=== PATIENT | female | born 1970 | race African-American/Black ===

== ENCOUNTER 2016-04-30 20:21 | Inpatient (IN) | payer MEDICARE, OTHER ==
[~2016-04-30] VITALS: Ht 165.1 cm; Wt 62.3 kg
[~2016-04-30 20:21] MED LIST: ALBU0.086 INH; CLOB-50 EX; DILA100C PO; ELVITAB PO; PRED50 PO; SYMB160A INH; VENTAER INH; ZITH250T PO
[2016-04-30 20:27] VITALS: BP 190/105; PULSE 115; RESP 22; TEMP 98.2; O2SAT 87
[2016-04-30 20:35] VITALS: BP 197/98; PULSE 116; RESP 22; RESP 24; O2SAT 93
[2016-04-30] MEDS ORDERED: cefTRIAXone INJ 2,000 MG in SODIUM CHLORIDE 0.9% INJ 100 ML IV STA (20:48)
[2016-04-30] MEDS ORDERED: AZITHROMYCIN INJ 500 MG in SODIUM CHLOR 0.9% 250 ML INJ 250 ML IV STA (20:48)
--- NOTE | 2016-04-30 20:55 | PD ---
HPI Chief Complaint: Respiratory Distress Time Seen by Provider: 20:43 Travel History International Travel<30 days: No Contact w/Intl Traveler<30days: No Traveled to known affect area: No History of Present Illness HPI This 46-year-old female is complaining of cough and shortness of breath. She has a history of COPD. She smokes a pack a day. She says she used to smoke 2 packs a day. She's been coughing up brown phlegm. Been short of breath. She also has a history of HIV. She is on medication for it she says she takes 1 pill a day. He says his viral load is not detectable. She was treated for pneumonia last summer. She also has a history of seizures and is on Dilantin. She apparently had a [place] infection with ring-enhancing lesions. PFSH Past Medical History Anemia: Yes Arthritis: No Asthma: Yes Blood Disorders: No Anxiety: Yes Depression: No Heart Rhythm Problems: Yes (TACHY) Cancer: No Cardiac Catheterization: Yes (normal per pt) Cardiovascular Problems: Yes (TACHYCARDIC 04/09/05) High Cholesterol: No Chest Pain: No Congestive Heart Failure: No COPD: Yes Cerebrovascular Accident: No Diminished Hearing: No Endocrine: No Gastrointestinal Disorders: Yes Genitourinary: No Headaches: Yes (sometimes) Hypertension: No Immune Disorder: Yes (HIV) Musculoskeletal: No Neurologic: Yes Psychiatric: Yes Reproductive: No Respiratory: Yes (ASTHMA AND BRONCHITIS) Integumentary: Yes (ECZEMA) Immunizations Current: Yes Migraines: Yes Pneumonia: Yes Seizures: Yes Shingles: Yes (JULY 2014) Sleep Apnea: No ?: Not Menopausal: Yes : 3 Para: 3 Past Surgical History Abdominal Surgery: No AICD: No Arteriovenous Shunt: No Cardiac Surgery: No Ear Surgery: No Endocrine Surgery: Yes (LYMPH NODE REMOVED FROM LEFT SIDE OF NECK IN 1994) Eye Surgery: No Genitourinary Surgery: No Gynecologic Surgery: No Insulin Pump: No Joint Replacement: No Oral Surgery: Yes (TEETH REMOVED) Pacemaker: No Thoracic Surgery: No Other Surgery: Yes Social History Alcohol Use: No Tobacco Use: Yes (04-18 PPD) Substance Use: No Allergies-Medications (Allergen,Severity, Reaction): Coded Allergies: Celebrex (Unverified Allergy, Severe, Hallucinations, 08/11/15) Contrast Media (Unverified Allergy, Severe, SIEZU, 08/11/15) Reported Meds & Prescriptions Reported Meds & Active Scripts Active Deltasone 50 Mg Tab (Prednisone) 50 Mg Tab 50 Mg PO DAILY 5 Days Zithromax Z-Clemente (Azithromycin) 250 Mg Tab 250 Mg PO DIRECTED 500 MG (2 TABLETS) PO ON DAY 1, THEN 250 MG (1 TABLET) PO ON DAYS 2 TO 5. Ventolin Hfa (Albuterol Sulfate) 18 Gm Aero 2 Puff INH Q4H PRN * SHAKE WELL BEFORE USE * Symbicort (Budesonide/Formoterol Fumarate) 160 Mcg/4.5 Mcg Aer 2 Puff INH BID * SHAKE WELL BEFORE USE * Proventil Ud 0.083% (2.5 Mg/3 Ml) (Albuterol Sulfate) 2.5 Mg/3 Ml Inha 2.5 Mg INH Q4 PRN Reported Symbicort (Budesonide/Formoterol Fumarate) 160 Mcg/4.5 Mcg Aer 2 Puff INH BID * SHAKE WELL BEFORE USE * Clobetasol Propionate (Clobetasol Propionate Emulsion) 0.05 % Aer 0.05 % EX BID Stribild (Msivvuksofdu-Mqhbwizmgx-Ceigfk) Tab 1 Tab PO HS Dilantin Kapseals (Phenytoin Sodium) 100 Mg Cap 100 Mg PO DAILY Review of Systems General / Constitutional: Positive: Fever, No: Chills Eyes: No: Diploplia, Blurred Vision HENT: No: Headaches Cardiovascular: No: Chest Pain or Discomfort Respiratory: Positive: Cough, Shortness of Breath, Wheezing Gastrointestinal: No: Vomiting Skin: No Rash Hematologic/Lymphatic: No: Easy Bruising Physical Exam Narrative GENERAL: Thin female in moderate respiratory distress. Her oxygen saturation on room air was 88% SKIN: Warm and dry. HEAD: Atraumatic. Normocephalic. EYES: Pupils equal and round. No scleral icterus. No injection or drainage. ENT: No nasal bleeding or discharge. Mucous membranes pink and moist. NECK: Trachea midline. No JVD. CARDIOVASCULAR: Regular rate and rhythm. No murmur appreciated. RESPIRATORY: There is accessory muscle use. She has bilateral expiratory wheezes and rhonchi. GASTROINTESTINAL: Abdomen soft, non-tender, nondistended. Hepatic and splenic margins not palpable. MUSCULOSKELETAL: No obvious deformities. No clubbing. No cyanosis. No edema. NEUROLOGICAL: Awake and alert. No obvious cranial nerve deficits. Motor grossly within normal limits. Normal speech. PSYCHIATRIC: Appropriate mood and affect; insight and judgment normal. Data Data Last Documented VS Vital Signs Date Time Temp Pulse Resp B/P Pulse Ox O2 Delivery O2 Flow Rate FiO2 04/30/16 20:27 98.2 115 22 190/105 87 Orders Complete Blood Count With Diff (04/30/16 20:48) Comprehensive Metabolic Panel (04/30/16 20:48) B-Type Natriuretic Peptide (04/30/16 20:48) Ua Includes Microscopic (04/30/16 20:48) Influenzae A/B Antigen (04/30/16 20:48) Blood Culture (04/30/16 20:48) Iv Access Insert/Monitor (04/30/16 20:48) Ecg Monitoring (04/30/16 20:48) Oximetry (04/30/16 20:48) Oxygen Administration (04/30/16 20:48) Chest, Single Ap (04/30/16 20:48) Sodium Chloride 0.9% Flush (Ns Flush) (04/30/16 21:00) Methylprednisolone So Succ Inj (Solumedr (04/30/16 21:00) Albuterol-Ipratropium Neb (Duoneb Neb) (04/30/16 21:00) Lactic Acid Sepsis Protocol (04/30/16 20:48) Blood Glucose (04/30/16 20:48) Ceftriaxone Inj (Rocephin Inj) (04/30/16 20:48) Azithromycin Inj (Zithromax Inj) (04/30/16 20:48) Phenytoin (Dilantin) (04/30/16 20:48) Ldh Serum (04/30/16 20:48) Labs Laboratory Tests Test 04/30/16 20:40 White Blood Count 10.3 TH/MM3 Red Blood Count 4.22 MIL/MM3 Hemoglobin 13.6 GM/DL Hematocrit 40.6 % Mean Corpuscular Volume 96.2 FL Mean Corpuscular Hemoglobin 32.2 PG Mean Corpuscular Hemoglobin 33.4 % Concent Red Cell Distribution Width 16.0 % Platelet Count 257 TH/MM3 Mean Platelet Volume 8.3 FL Neutrophils (%) (Auto) 72.2 % Lymphocytes (%) (Auto) 20.3 % Monocytes (%) (Auto) 6.8 % Eosinophils (%) (Auto) 0.3 % Basophils (%) (Auto) 0.4 % Neutrophils # (Auto) 7.5 TH/MM3 Lymphocytes # (Auto) 2.1 TH/MM3 Monocytes # (Auto) 0.7 TH/MM3 Eosinophils # (Auto) 0.0 TH/MM3 Basophils # (Auto) 0.0 TH/MM3 CBC Comment DIFF FINAL Differential Comment Sodium Level 141 MEQ/L Potassium Level 4.6 MEQ/L Chloride Level 103 MEQ/L Carbon Dioxide Level 30.9 MEQ/L Anion Gap 7 MEQ/L Blood Urea Nitrogen 23 MG/DL Creatinine 0.86 MG/DL Estimat Glomerular Filtration 85 ML/MIN Rate Random Glucose 93 MG/DL Calcium Level 8.6 MG/DL Total Bilirubin 0.1 MG/DL Aspartate Amino Transf 49 U/L (AST/SGOT) Alanine Aminotransferase 55 U/L (ALT/SGPT) Alkaline Phosphatase 61 U/L B-Type Natriuretic Peptide 136 PG/ML Total Protein 7.6 GM/DL Albumin 3.3 GM/DL Phenytoin (Dilantin) Level LESS THAN 0.4 MCG/ML MDM Medical Decision Making Medical Screen Exam Complete: Yes Emergency Medical Condition: Yes Medical Record Reviewed: Yes Differential Diagnosis Differential includes pneumonia, COPD exacerbation, Narrative Course Patient has been given repeated nebulizer treatments and Solu-Medrol. She has ongoing expiratory wheezing. With 2 L nasal oxygen her oxygen saturation is 92% . Chest x-rays read as negative. She will Need to be admitted impression is COPD exacerbation Sepsis Criteria SIRS Criteria (2 or more): Heart rate over 90, RR > 20 or PaCO2 < 32 Diagnosis Primary Impression: COPD exacerbation Suleiman Owen MD Apr 30, 2016 20:55
[2016-04-30] MEDS ORDERED: methylPREDNISolone SOD SUCC 125 MG/2 ML VIAL IVP ONE (21:00)
[2016-04-30] MEDS ORDERED: SODIUM CHLORIDE 0.9% FLUSH 5 ML FLUSH IVF PRN (21:00)
[2016-04-30] MEDS: RESP: ALBUTEROL 2.5 MG/IPRATROPIUM 0.5 MG NEB (SCH) INH (21:04)
[2016-04-30 21:05] VITALS: O2SAT 95
[2016-04-30 21:15] LABS: AUTOMATED NEUTROPHIL # 7.5 TH/MM3 (1.8-7.7); BASOPHIL % 0.4 % (0.0-2.0); EOSINOPHIL % 0.3 % (0.0-4.0); HEMATOCRIT 40.6 % (35.0-46.0); HEMO FLAGS DIFF FINAL; LYMPH % 20.3 % (9.0-44.0); LYMPHOCYTE # 2.1 TH/MM3 (1.0-4.8); MEAN CELL VOLUME 96.2 FL (80.0-100.0); MEAN CORPUSCULAR HEMOGLOBIN 32.2 PG (27.0-34.0); MEAN CORPUSCULAR HGB CONC 33.4 % (32.0-36.0); MONO % 6.8 % (0.0-8.0); NEUT % 72.2 % (16.0-70.0); PLATELET COUNT 257 TH/MM3 (150-450); RED BLOOD COUNT 4.22 MIL/MM3 (4.00-5.30); WHITE BLOOD COUNT 10.3 TH/MM3 (4.0-11.0)
--- NOTE | 2016-04-30 21:18 | RADHPO ---
EXAM DATE/TIME: 04/30/2016 20:57 [facility] COMPARISON: CHEST SINGLE AP, August 11, 2015, 18:07. INDICATIONS : Shortness of breath. MEDICAL HISTORY : Chronic obstructive pulmonary disease. HIV. Seizures, Tachycardia, Asthma, [place] SURGICAL HISTORY : Coronary artery stent. ENCOUNTER: Initial ACUITY: 3 days PAIN SCORE: 0/10 LOCATION: Bilateral chest FINDINGS: A single view of the chest demonstrates the lungs to be symmetrically aerated without evidence of mas s, infiltrate or effusion. The cardiomediastinal contours are unremarkable. Osseous structures are intact. CONCLUSION: No acute disease. Nathanael Guevara MD on April 30, 2016 at 21:16 Board Certified Radiologist. This report was verified electronically.
[2016-04-30 21:28] LABS: CHLORIDE 103 MEQ/L (98-107); POTASSIUM 4.6 MEQ/L (3.5-5.1); SODIUM (NA) 141 MEQ/L (136-145)
[2016-04-30 21:31] LABS: ANION GAP 7 MEQ/L (5-15); BICARBONATE 30.9 MEQ/L (21.0-32.0); BLOOD UREA NITROGEN 23 MG/DL (7-18)
[2016-04-30 21:34] LABS: ALT (GPT) 55 U/L (10-53); AST (GOT) 49 U/L (15-37); GLOMERULAR FILTRATION RATE 85 ML/MIN (>89)
[2016-04-30 21:35] LABS: TOTAL BILIRUBIN ADULT 0.1 MG/DL (0.2-1.0)
[2016-04-30 21:37] LABS: ALKALINE PHOSPHATASE 61 U/L (45-117)
[2016-04-30 21:59] LABS: BLOOD, URINE TRACE (NEG); GLUCOSE,URINE 100 mg/dL (NEG); KETONE, URINE NEG (NEG); NITRITE,URINE NEG (NEG)
[2016-04-30 22:06] LABS: URINE COLOR YELLOW (YELLW/STRAW)
[2016-04-30 22:07] LABS: RBC, URINE 0-3 /hpf (0-3); SQUAMOUS EPITHELIAL CELL URINE 0-5 /hpf (0-5); WBC, URINE 0-2 /hpf (0-5)
[2016-04-30] MEDS ORDERED: ELVITAB PO (22:10)
[2016-04-30] MEDS ORDERED: VENTAER INH (22:10)
[2016-04-30] MEDS ORDERED: ALBU.5I NEB (22:10)
[2016-04-30] MEDS ORDERED: SYMB160A INH (22:10)
[2016-04-30] MEDS ORDERED: DILA100C PO (22:10)
[2016-04-30] MEDS ORDERED: [UNRECOGNIZED DRUG - CODE] TOPICAL (22:10)
[2016-04-30] MEDS ORDERED: OXYC1TAB63 PO (22:12)
[2016-04-30] MEDS ORDERED: oxyCODONE/ACETAMINOPHEN 5 MG/325 MG TAB PO ONE (22:15)
[2016-04-30] MEDS ORDERED: ACETAMINOPHEN 325 MG TAB PO PRN (22:30)
[2016-04-30] MEDS ORDERED: SODIUM CHLORIDE 0.9% FLUSH 5 ML FLUSH FLUSH PRN (22:30)
[2016-04-30] MEDS ORDERED: ONDANSETRON HCL 4 MG/2 ML VIAL IVP PRN (22:30)
[2016-04-30] MEDS ORDERED: ACETAMINOPHEN/HYDROcodone 325 MG/5 MG TAB PO PRN (22:30)
[2016-04-30] MEDS ORDERED: ACETAMINOPHEN/HYDROcodone 325 MG/10 MG TAB PO PRN (22:30)
[2016-04-30] MEDS ORDERED: BISACODYL 10 MG SUPP PR PRN (22:30)
[2016-04-30] MEDS ORDERED: RESP: ALBUTEROL 2.5 MG/IPRATROPIUM 0.5 MG NEB (PRN) NEB (22:30)
[2016-04-30 22:35] VITALS: BP 178/86; PULSE 114; RESP 28; O2SAT 96
[2016-04-30 22:59] LABS: LDH SERUM 404 U/L (84-246)
[2016-04-30 23:25] VITALS: BP 126/68; PULSE 114; RESP 26; O2SAT 96
[2016-04-30 23:50] VITALS: PULSE 118
[2016-05-01] MEDS: methylPREDNISolone SOD SUCC 40 MG/1 ML VIAL IV PUSH SCH ×4 (00:03→17:32)
[2016-05-01 00:27] VITALS: BP 125/86; PULSE 115; RESP 24; TEMP 97; O2SAT 96
[2016-05-01 04:28] VITALS: BP 139/66; PULSE 90; RESP 24; TEMP 98.8; O2SAT 95
[2016-05-01 07:49] LABS: CHLORIDE 105 MEQ/L (98-107); POTASSIUM 4.8 MEQ/L (3.5-5.1); SODIUM (NA) 142 MEQ/L (136-145)
[2016-05-01 07:53] LABS: ANION GAP 6 MEQ/L (5-15); BICARBONATE 31.3 MEQ/L (21.0-32.0); BLOOD UREA NITROGEN 21 MG/DL (7-18)
[2016-05-01 07:55] LABS: BASOPHIL % 0.2 % (0.0-2.0); HEMATOCRIT 39.1 % (35.0-46.0); HEMO FLAGS DIFF FINAL; LYMPH % 16.7 % (9.0-44.0); LYMPHOCYTE # 1.2 TH/MM3 (1.0-4.8); MEAN CELL VOLUME 96.7 FL (80.0-100.0); MEAN CORPUSCULAR HEMOGLOBIN 32.8 PG (27.0-34.0); MEAN CORPUSCULAR HGB CONC 33.9 % (32.0-36.0); MONO % 2.1 % (0.0-8.0); PLATELET COUNT 205 TH/MM3 (150-450); RED BLOOD COUNT 4.04 MIL/MM3 (4.00-5.30); WHITE BLOOD COUNT 7.4 TH/MM3 (4.0-11.0)
[2016-05-01 07:56] LABS: ALT (GPT) 53 U/L (10-53); AST (GOT) 39 U/L (15-37); GLOMERULAR FILTRATION RATE 103 ML/MIN (>89)
[2016-05-01 07:58] LABS: TOTAL BILIRUBIN ADULT 0.2 MG/DL (0.2-1.0)
[2016-05-01 07:59] LABS: ALKALINE PHOSPHATASE 56 U/L (45-117)
[2016-05-01 08:00] VITALS: BP 172/93; PULSE 106; PULSE 120; RESP 24; TEMP 97.8; O2SAT 95
[2016-05-01] MEDS: RESP: ALBUTEROL 2.5 MG/IPRATROPIUM 0.5 MG NEB (SCH) NEB ×3 (08:18→15:15)
[2016-05-01 08:19] VITALS: O2SAT 96
[2016-05-01] MEDS ORDERED: BUDESONIDE-FORMOTEROL 160/4.5 MCG INHALER INH SCH (09:00)
[2016-05-01] MEDS ORDERED: guaiFENesin E.R. 600 MG TAB PO SCH (09:00)
[2016-05-01] MEDS ORDERED: SODIUM CHLORIDE 0.9% FLUSH 5 ML FLUSH FLUSH SCH (09:00)
[2016-05-01 12:00] VITALS: BP 160/83; PULSE 105; RESP 24; TEMP 99.6; O2SAT 98
--- NOTE | 2016-05-01 13:49 | HHI.HP ---
[facility]Staff Admission Diagnosis COPD EXACERBATION Diagnoses: Chief Complaint: Short of breath Travel History International Travel<30 Days: No Contact w/Intl Traveler <30 Da: No Traveled to Known Affected Are: No History of Present Illness This patient is a 46-year-old female with a history of bronchitis who came to the emergency room after several days of increased work of breathing and increased shortness of breath with exertion. Patient normally takes Ventolin, Symbicort and Proventil at home but noted that for the last couple days she had to use more of her rescue inhaler and her regular treatment were not helping her breathing. She did come to the emergency room for further evaluation. She was hypoxemic at 87% on room air. She is working hard to breathe and was therefore admitted through the emergency room for further evaluation of respiratory distress and hypoxemic respiratory failure. Patient at this time is seen eating. She is still working hard to breathe however she is adamant that she must leave the hospital work. I did explain to the patient that she has not cleared her shortness of breath and will need further treatment here in the hospital. Patient denies fevers or chills but she has been shaky and dizzy over the last 24 hours. She notes no chest pain. For these reasons the patient was admitted to the hospital Review of Systems Constitutional: COMPLAINS OF: Fatigue, Dizziness, DENIES: Diaphoretic episodes , Fever, Weight gain, Weight loss, Chills, Change in appetite, Night Sweats Endocrine: DENIES: Abnorml menstrual pattern, Heat/cold intolerance, Polydipsia , Polyuria, Polyphagia Eyes: DENIES: Blurred vision, Diplopia, Eye inflammation, Eye pain, Vision loss , Photosensitivity, Double Vision Ears, nose, mouth, throat: DENIES: Tinnitus, Hearing loss, Vertigo, Nasal discharge, Oral lesions, Throat pain, Hoarseness, Ear Pain, Running Nose, Epistaxis, Sinus Pain, Toothache, Odynophagia Respiratory: COMPLAINS OF: Sputum production, Shortness of breath, DENIES: Apneas, Cough, Snoring, Wheezing, Hemoptysis Cardiovascular: COMPLAINS OF: Dyspnea on Exertion, DENIES: Chest pain, Palpitations, Syncope, PND, Lower Extremity Edema, Orthopnea, Claudication Gastrointestinal: DENIES: Abdominal pain, Black stools, Bloody stools, Constipation, Diarrhea, Nausea, Vomiting, Difficulty Swallowing, Anorexia Integumentary: DENIES: Abnormal pigmentation, Pruritus, Rash, Nail changes, Breast masses, Breast skin changes, Nipple discharge Hematologic/lymphatic: DENIES: Bruising, Lymphadenopathy Immunologic/allergic: DENIES: Eczema, Urticaria Neurologic: DENIES: Abnormal gait, Headache, Localized weakness, Paresthesias, Seizures, Speech Problems, Tremor, Poor Balance Psychiatric: COMPLAINS OF: Anxiety, DENIES: Confusion, Mood changes, Depression, Hallucinations, Agitation, Suicidal Ideation, Homicidal Ideation, Delusions Past Family Social History Past Medical History HIV COPD for 3 years Eczema Past Surgical History Lymph node excision Dental extraction Reported Medications Reviewed and the medical record, patient denies taking any recent steroids. She does take her inhaler at home Allergies: Coded Allergies: Celebrex (Unverified Allergy, Severe, Hallucinations, 08/11/15) Contrast Media (Unverified Allergy, Severe, SIEZURE, 08/11/15) Active Ordered Medications Reviewed and the medical record Family History No family history of respiratory trouble Social History Patient smokes at least 1-1/2 packs a day, works at [employer], no alcohol, lives independently Physical Exam Vital Signs Vital Signs Date Time Temp Pulse Resp B/P Pulse Ox O2 Delivery O2 Flow Rate FiO2 05/01/16 12:00 99.6 105 24 160/83 98 05/01/16 08:19 96 Nasal Cannula 2.00 05/01/16 08:00 106 05/01/16 08:00 97.8 120 24 172/93 95 05/01/16 04:28 98.8 90 24 139/66 95 05/01/16 00:27 97.0 115 24 125/86 96 04/30/16 23:50 118 04/30/16 23:25 114 26 126/68 96 Nasal Cannula 2 04/30/16 22:35 114 28 178/86 96 Nasal Cannula 2 04/30/16 21:05 95 Nasal Cannula 2.00 04/30/16 20:45 116 24 93 Nasal Cannula 2 04/30/16 20:35 86 Nasal Cannula 2 04/30/16 20:35 22 93 Nasal Cannula 2 04/30/16 20:35 116 24 197/98 93 Nasal Cannula 2 04/30/16 20:27 98.2 115 22 190/105 87 Physical Exam GENERAL: This is a well-nourished, dyspneic at rest with increased work of breathing and difficulty completing full sentences SKIN: No rashes, ecchymoses or lesions. Cool and dry. HEAD: Atraumatic. Normocephalic. No temporal or scalp tenderness. EYES: Pupils equal round and reactive. Extraocular motions intact. No scleral icterus. No injection or drainage. ENT: Nose without bleeding, purulent drainage or septal hematoma. Throat without erythema, tonsillar hypertrophy or exudate. Uvula midline. Airway patent. NECK: Trachea midline. No JVD or lymphadenopathy. Supple, nontender, no meningeal signs. CARDIOVASCULAR: Regular rate and rhythm without murmurs, gallops, or rubs. RESPIRATORY: Decreased air flow bilaterally, scattered wheezes, no Rales or rhonchi GASTROINTESTINAL: Abdomen soft, non-tender, nondistended. No hepato-splenomegaly , or palpable masses. No guarding. MUSCULOSKELETAL: Extremities without clubbing, cyanosis, or edema. No joint tenderness, effusion, or edema noted. No calf tenderness. Negative Homans sign bilaterally. NEUROLOGICAL: Awake and alert. Cranial nerves II through XII intact. Motor and sensory grossly within normal limits. Five out of 5 muscle strength in all muscle groups. Normal speech. Laboratory Laboratory Tests Test 04/30/16 04/30/16 04/30/16 05/01/16 20:40 21:31 21:40 06:55 White Blood Count 10.3 7.4 Red Blood Count 4.22 4.04 Hemoglobin 13.6 13.3 Hematocrit 40.6 39.1 Mean Corpuscular Volume 96.2 96.7 Mean Corpuscular Hemoglobin 32.2 32.8 Mean Corpuscular Hemoglobin 33.4 33.9 Concent Red Cell Distribution Width 16.0 16.0 Platelet Count 257 205 Mean Platelet Volume 8.3 8.5 Neutrophils (%) (Auto) 72.2 81.0 Lymphocytes (%) (Auto) 20.3 16.7 Monocytes (%) (Auto) 6.8 2.1 Eosinophils (%) (Auto) 0.3 0.0 Basophils (%) (Auto) 0.4 0.2 Neutrophils # (Auto) 7.5 6.0 Lymphocytes # (Auto) 2.1 1.2 Monocytes # (Auto) 0.7 0.2 Eosinophils # (Auto) 0.0 0.0 Basophils # (Auto) 0.0 0.0 CBC Comment DIFF FINAL DIFF FINAL Differential Comment Sodium Level 141 142 Potassium Level 4.6 4.8 Chloride Level 103 105 Carbon Dioxide Level 30.9 31.3 Anion Gap 7 6 Blood Urea Nitrogen 23 21 Creatinine 0.86 0.73 Estimat Glomerular Filtration 85 103 Rate Random Glucose 93 104 Calcium Level 8.6 8.7 Total Bilirubin 0.1 0.2 Aspartate Amino Transf 49 39 (AST/SGOT) Alanine Aminotransferase 55 53 (ALT/SGPT) Alkaline Phosphatase 61 56 Lactate Dehydrogenase 404 B-Type Natriuretic Peptide 136 Total Protein 7.6 7.3 Albumin 3.3 3.0 Phenytoin (Dilantin) Level LESS THAN 0.4 Lactic Acid Level 0.9 Urine Color YELLOW Urine Turbidity CLEAR Urine pH 6.0 Urine Specific [place] 1.020 Urine Protein 30 Urine Glucose (UA) 100 Urine Ketones NEG Urine Occult Blood TRACE Urine Nitrite NEG Urine Bilirubin NEG Urine Leukocyte Esterase NEG Urine RBC 0-3 Urine WBC 0-2 Urine Squamous Epithelial 0-5 Cells Urine Bacteria NONE Microscopic Urinalysis Comment Date/Time Procedure Status Source Growth 04/30/16 21:26 Influenza Types A,B Antigen (ESTELITA) - Final Complete Nasal Aspirate NEGATIVE FOR FLU A AND B ANTIGEN.... 04/30/16 21:26 Aerobic Blood Culture - Preliminary Resulted Blood Peripheral NO GROWTH IN 1 DAY 04/30/16 21:26 Anaerobic Blood Culture - Preliminary Resulted Blood Peripheral NO GROWTH IN 1 DAY Result Diagram: 05/01/16 0655 05/01/1655 Imaging Last Impressions Chest X-Ray 04/30/162047 Signed Impressions: Service Date/Time: Saturday, April 30, 2016 20:57 - CONCLUSION: No acute disease. Nathanael Guevara MD Assessment and Plan Problem List: (1) Sinus tachycardia ICD Code: I47.1 Status: Acute Plan: Likely secondary to COPD exacerbation with acute respiratory insufficiency Continue to follow (2) HIV (human immunodeficiency virus infection) ICD Code: Z21 Status: Acute Plan: Continue antivirals Outpatient follow-up with ID (3) COPD exacerbation ICD Code: J44.1 Status: Acute Plan: Continue bronchodilators, and Jake, oxygen, walk test pending Patient 87% on room air on initial evaluation Still quite tachycardic and blood pressures elevated Physician Certification 2 Midnight Certification Type: Admission for Inpatient Services Order for Inpatient Services The services are ordered in accordance with Medicare regulations or non- Medicare payer requirements, as applicable. In the case of services not specified as inpatient-only, they are appropriately provided as inpatient services in accordance with the 2-midnight benchmark. Estimated LOS (days): 3 3 days is the estimated time the patient will need to remain in the hospital, assuming treatment plan goals are met and no additional complications. Post-Hospital Plan: Home Odette Alvarez MD May 01, 2016 13:48
[2016-05-01 16:00] VITALS: BP 160/77; PULSE 119; RESP 20; TEMP 98.4; O2SAT 97
[2016-05-01] MEDS ORDERED: cloNIDine HCL 0.1 MG TAB PO PRN (16:45)
[2016-05-01] MEDS ORDERED: cefTRIAXone INJ 1,000 MG in SODIUM CHLORIDE 0.9% INJ 100 ML IV SCH (23:00)
[2016-05-01] MEDS ORDERED: AZITHROMYCIN INJ 500 MG in SODIUM CHLOR 0.9% 250 ML INJ 250 ML IV SCH (23:00)
[2016-05-02] MEDS ORDERED: ELVIT/COBI/EMTR/TENOF 150/150/200/300 MG TABLETS PO SCH (09:00)
[2016-05-02] MEDS ORDERED: PHENYTOIN SODIUM 100 MG CAP PO SCH (09:00)
== END 2016-05-01 17:53 | disposition left against medical advice (07) | DRG 192 ==
LOC: PHED 20:21 → PHEDA 22:21 → PH3A 23:28
PROVIDERS: ADMIT Hospitalist; ATTEND Hospitalist
PROC: 3E0F7GC Introduction of Other Therapeutic Substance into Respiratory Tract, Via Natural or Artificial Opening (ICD-10-PCS; principal; 2016-04-30)
DX: J44.1 Chronic obstructive pulmonary disease with (acute) exacerbation (principal); F17.210 Nicotine dependence, cigarettes, uncomplicated; J45.909 Unspecified asthma, uncomplicated; G40.909 Epilepsy, unspecified, not intractable, without status epilepticus; Z21 Asymptomatic human immunodeficiency virus [HIV] infection status; G43.909 Migraine, unspecified, not intractable, without status migrainosus; R09.02 Hypoxemia; R06.89 Other abnormalities of breathing
CPT/HCPCS: 71010; 80053; 80185; 81001; 83605; 83615; 83880; 85025; 87040; 87804; 94620; 94640; 94664; 96365; 96375; J0456; J0696; J2920; J2930; J7050

== ENCOUNTER 2016-05-19 22:44 | Emergency (ER) | payer MEDICARE, MEDICAID ==
[~2016-05-19] VITALS: Ht 165.1 cm; Wt 61.0 kg
[~2016-05-19 22:44] MED LIST changes: +ALBU.5I NEB; -ALBU0.086 INH; -CLOB-50 EX; +OXYC1TAB63 PO; -PRED50 PO; -ZITH250T PO; +[UNRECOGNIZED DRUG - CODE] TOPICAL
[2016-05-19 22:55] VITALS: BP 136/86; PULSE 118; RESP 20; TEMP 98.6; O2SAT 94
[2016-05-20] MEDS ORDERED: SODIUM CHLORIDE 0.9% FLUSH 5 ML FLUSH IVF PRN (01:15)
[2016-05-20] MEDS ORDERED: methylPREDNISolone SOD SUCC 125 MG/2 ML VIAL IVP ONE (01:15)
[2016-05-20] MEDS: RESP: ALBUTEROL 2.5 MG/IPRATROPIUM 0.5 MG NEB (SCH) INH ×2 (01:16→01:17)
--- NOTE | 2016-05-20 01:29 | RADHPO ---
EXAM DATE/TIME: 05/20/2016 01:11 [facility] COMPARISON: CHEST SINGLE AP, April 30, 2016, 20:57. INDICATIONS : Cough and chills for two days. MEDICAL HISTORY : None. SURGICAL HISTORY : None. ENCOUNTER: Initial ACUITY: 2 days PAIN SCORE: 0/10 LOCATION: chest FINDINGS: Lungs are hyperexpanded. No infiltrate. No pleural effusion or pneumothorax. Heart size stable, within normal limits. CONCLUSION: No pneumonia or other acute cardiopulmonary disease. Hyperexpanded lungs. Nathanael Wan MD on May 20, 2016 at 1:27 Board Certified Radiologist. This report was verified electronically.
[2016-05-20 01:38] LABS: AUTOMATED NEUTROPHIL # 3.1 TH/MM3 (1.8-7.7); BASOPHIL # 0.2 TH/MM3 (0-0.2); BASOPHIL % 3.8 % (0.0-2.0); EOSINOPHIL # 0.1 TH/MM3 (0-0.4); HEMATOCRIT 39.8 % (35.0-46.0); HEMO FLAGS DIFF FINAL; LYMPH % 33.4 % (9.0-44.0); LYMPHOCYTE # 1.9 TH/MM3 (1.0-4.8); MEAN CELL VOLUME 95.2 FL (80.0-100.0); MEAN CORPUSCULAR HEMOGLOBIN 31.9 PG (27.0-34.0); MEAN CORPUSCULAR HGB CONC 33.5 % (32.0-36.0); MONO % 5.5 % (0.0-8.0); NEUT % 55.3 % (16.0-70.0); PLATELET COUNT 243 TH/MM3 (150-450); RED BLOOD COUNT 4.18 MIL/MM3 (4.00-5.30); RED CELL DISTRIBUTION WIDTH 15.2 % (11.6-17.2); WHITE BLOOD COUNT 5.6 TH/MM3 (4.0-11.0)
[2016-05-20 01:44] LABS: POTASSIUM 4.2 MEQ/L (3.5-5.1)
[2016-05-20 01:47] LABS: BICARBONATE 25.5 MEQ/L (21.0-32.0)
[2016-05-20 01:57] VITALS: BP 111/63; PULSE 120; RESP 20; O2SAT 98
[2016-05-20 02:15] VITALS: O2SAT 94
[2016-05-20 02:41] VITALS: BP 163/71; PULSE 109; PULSE 118; RESP 20; O2SAT 92; O2SAT 96
--- NOTE | 2016-05-20 03:17 | PD ---
HPI Chief Complaint: Cold / Flu Symptoms Time Seen by Provider: 01:01 Travel History International Travel<30 days: No Contact w/Intl Traveler<30days: No Traveled to known affect area: No History of Present Illness HPI The patient is a 46-year-old female that has a history of asthma/COPD who complains of cough and chills for 2 days. She has not recorded a fever at home. Her cough is productive mostly of white and yellow sputum. He states she does not smoke. She does have a nebulizer machine at home and requests refills for her nebulizer. PFSH Past Medical History Anemia: Yes Arthritis: No Asthma: Yes Blood Disorders: No Anxiety: Yes Depression: No Heart Rhythm Problems: Yes (TACHY) Cancer: No Cardiac Catheterization: Yes (normal per pt) Cardiovascular Problems: Yes (TACHYCARDIC 04/09/05) High Cholesterol: No Chest Pain: No Congestive Heart Failure: No COPD: Yes Cerebrovascular Accident: No Diminished Hearing: No Endocrine: No Gastrointestinal Disorders: Yes Genitourinary: No Headaches: Yes (sometimes) Hypertension: No Immune Disorder: Yes (HIV) Musculoskeletal: No Neurologic: Yes Psychiatric: Yes Reproductive: No Respiratory: Yes (ASTHMA AND BRONCHITIS) Integumentary: Yes (ECZEMA) Immunizations Current: Yes Migraines: Yes Pneumonia: Yes Seizures: Yes Shingles: Yes (JULY 2014) Sleep Apnea: No Tetanus Vaccination: Unknown ?: Not LMP: MENOPAUSE Menopausal: Yes : 3 Para: 3 Past Surgical History Abdominal Surgery: No AICD: No Arteriovenous Shunt: No Cardiac Surgery: No Ear Surgery: No Endocrine Surgery: Yes (LYMPH NODE REMOVED FROM LEFT SIDE OF NECK IN 1994) Eye Surgery: No Genitourinary Surgery: No Gynecologic Surgery: No Insulin Pump: No Joint Replacement: No Oral Surgery: Yes (TEETH REMOVED) Pacemaker: No Thoracic Surgery: No Other Surgery: Yes Social History Alcohol Use: No Tobacco Use: Yes (1 PPD) Substance Use: No Allergies-Medications (Allergen,Severity, Reaction): Coded Allergies: Celebrex (Unverified Allergy, Severe, Hallucinations, 05/20/16) Contrast Media (Unverified Allergy, Severe, SIEZURE, 05/20/16) Reported Meds & Prescriptions Reported Meds & Active Scripts Active Reported Oxycodone-Acetaminophen 5-325 mg Tab 1 Tab PO Q6H PRN Clobetasol Topical (Clobetasol Propionate) 0.05% Sham 1 Applic TOPICAL DAILY Dilantin (Phenytoin Extended) 100 Mg Cap 100 Mg PO DAILY Stribild (Ktzwucuvdssh-Nkraqfuxjo-Ckdpbazlabno-Tenofvir) [phone] Mg Tab 1 Tab PO DAILY With food Albuterol Neb (Albuterol Sulfate) 2.5 Mg/0.5 Ml Neb 2.5 Mg NEB TID NEB PRN Note: The Albuterol Sulfate Inhalation Solution is concentrated and must be diluted. Read complete instructions carefully before using. Ventolin Hfa 18 GM Inh (Albuterol Sulfate) 90 Mcg/Act Aer 2 Puff INH Q4-6H PRN Symbicort Inh (Budesonide/Formoterol Fumarate) 160-4.5 Mcg/Act Aero 2 Puff INH Q12HR Review of Systems Except as stated in HPI: all other systems reviewed are Neg Physical Exam Narrative GENERAL: SKIN: Warm and dry. HEAD: Atraumatic. Normocephalic. EYES: Pupils equal and round. No scleral icterus. No injection or drainage. ENT: No nasal bleeding or discharge. Mucous membranes pink and moist. NECK: Trachea midline. No JVD. CARDIOVASCULAR: Regular rate and rhythm. No murmur appreciated. RESPIRATORY: No accessory muscle use. Clear to auscultation. Breath sounds equal bilaterally. GASTROINTESTINAL: Abdomen soft, non-tender, nondistended. Hepatic and splenic margins not palpable. MUSCULOSKELETAL: No obvious deformities. No clubbing. No cyanosis. No edema. NEUROLOGICAL: Awake and alert. No obvious cranial nerve deficits. Motor grossly within normal limits. Normal speech. PSYCHIATRIC: Appropriate mood and affect; insight and judgment normal. Data Data Last Documented VS Vital Signs Date Time Temp Pulse Resp B/P Pulse Ox O2 Delivery O2 Flow Rate FiO2 05/20/16 02:42 Room Air 05/20/16 02:41 109 20 163/71 92 05/19/16 22:55 98.6 Orders Complete Blood Count With Diff (05/20/16 01:05) Basic Metabolic Panel (Bmp) (05/20/16 01:05) Influenzae A/B Antigen (05/20/16 01:05) Iv Access Insert/Monitor (05/20/16 01:05) Ecg Monitoring (05/20/16 01:05) Oximetry (05/20/16 01:05) Oxygen Administration (05/20/16 01:05) Chest, Pa & Lat (05/20/16 01:05) Sodium Chloride 0.9% Flush (Ns Flush) (05/20/16 01:15) Methylprednisolone So Succ Inj (Solumedr (05/20/16 01:15) Albuterol-Ipratropium Neb (Duoneb Neb) (05/20/16 01:15) Labs Laboratory Tests Test 05/20/16 01:20 White Blood Count 5.6 TH/MM3 Red Blood Count 4.18 MIL/MM3 Hemoglobin 13.4 GM/DL Hematocrit 39.8 % Mean Corpuscular Volume 95.2 FL Mean Corpuscular Hemoglobin 31.9 PG Mean Corpuscular Hemoglobin 33.5 % Concent Red Cell Distribution Width 15.2 % Platelet Count 243 TH/MM3 Mean Platelet Volume 7.9 FL Neutrophils (%) (Auto) 55.3 % Lymphocytes (%) (Auto) 33.4 % Monocytes (%) (Auto) 5.5 % Eosinophils (%) (Auto) 2.0 % Basophils (%) (Auto) 3.8 % Neutrophils # (Auto) 3.1 TH/MM3 Lymphocytes # (Auto) 1.9 TH/MM3 Monocytes # (Auto) 0.3 TH/MM3 Eosinophils # (Auto) 0.1 TH/MM3 Basophils # (Auto) 0.2 TH/MM3 CBC Comment DIFF FINAL Differential Comment Sodium Level 142 MEQ/L Potassium Level 4.2 MEQ/L Chloride Level 108 MEQ/L Carbon Dioxide Level 25.5 MEQ/L Anion Gap 9 MEQ/L Blood Urea Nitrogen 8 MG/DL Creatinine 0.72 MG/DL Estimat Glomerular Filtration 105 ML/MIN Rate Random Glucose 72 MG/DL Calcium Level 8.2 MG/DL [facility] Medical Decision Making Medical Screen Exam Complete: Yes Emergency Medical Condition: Yes Medical Record Reviewed: Yes Interpretation(s) The chest x-ray shows no pneumonia or other acute cardiopulmonary disease. Influenza is negative for influenza A and B. The CBC shows a white count of 5600 and is totally normal. The basic metabolic profile is normal except for a glucose of 72 and calcium 8.2. Differential Diagnosis COPD with acute exacerbation, pneumonia, bronchitis, viral syndrome, anemia, hypo-/hyperglycemia, electrolyte disorder Narrative Course The patient has COPD with acute exacerbation. It is now 0320 and the patient feels better and wants to go home. She still has a few widely scattered wheezes in her lungs. I will refill her albuterol nebulizer medication and she' ll be put on a tapered course of prednisone over a days. This appears to be set off by a viral syndrome, the white count is low suggesting viral etiology. Diagnosis Primary Impression: COPD exacerbation Additional Impression: Viral bronchitis Med/Other Pt SpecificInfo: Prescription(s) given Scripts Prednisone 50 Mg Tab50 Mg PO BID #12 TAB Ref 0 Prov:Sim Jara MD 05/20/16 Albuterol Neb 2.5 Mg/3 Ml Neb2.5 Mg NEB QID NEB #60 NEBULE Ref 0 Prov:Sim Jara MD 05/20/16 Disposition: 01 DISCHARGE HOME Condition: Stable Sim Jara MD May 20, 2016 03:17
[2016-05-20] MEDS ORDERED: ALBU0.08 NEB (03:22)
[2016-05-20] MEDS ORDERED: PRED50 PO (03:24)
[2016-05-20 03:36] VITALS: BP 139/71; PULSE 106; RESP 19; O2SAT 91
== END 2016-05-20 04:05 | disposition home or self-care (01) ==
LOC: PHED 22:44
DX: J44.1 Chronic obstructive pulmonary disease with (acute) exacerbation (principal); J20.8 Acute bronchitis due to other specified organisms; F17.210 Nicotine dependence, cigarettes, uncomplicated
CPT/HCPCS: 71020; 80048; 85025; 87804; 94640; 94664; 96374; 99283; J2930

== ENCOUNTER → 2016-06-01 | Outpatient (CLI) | payer MEDICARE, MEDICAID ==
[~2016-06-01] MED LIST changes: +ALBU0.08 NEB; +PRED50 PO
[2016-06-01 09:37] LABS: BLOOD GAS BASE EXCESS -0.1 mmol/L (-2-2); BLOOD GAS CARBOXYHEMOGLOBIN 2.6 % (0-4); BLOOD GAS HCO3 23 mmol/L (22-26); BLOOD GAS METHEMOGLOBIN 1.7 % (0-2); BLOOD GAS O2 HGB SATURATION 92 % (90-100); BLOOD GAS PCO2 33 mmHg (38-42); BLOOD GAS PO2 82 mmHg (61-120); BLOOD GAS TOTAL HGB 16.2 G/DL (12.0-16.0); CRITICAL VALUE NO; DRAW SITE RT RADIAL; FIO2 21 %; NUMBER OF ARTERIAL PUNCTURES 1; STAT NO; TEMP CORR TO 98.6; ULNAR PULSE PRESENT
--- NOTE | 2016-06-03 09:43 | RSPPFT ---
DATE OF PROCEDURE: 06/01/16 COMMENTS: VOLUMES DYNAMIC: FVC moderately reduced; FEV1 severely reduced. STATIC: TLC normal; VTG mildly increased; RV severely increased. FLOWS: FEV1% moderately reduced; FEF 25-75 severely reduced. DIFFUSION: Moderately reduced. FLOW VOLUME LOOP: Pattern of variable intrathoracic airways obstruction. IMPRESSION: Severe obstructive ventilatory defect with reduction in diffusion consistent with emphysema. Moderate to severe hyperinflation and significant improvement post-bronchodilator noted. Airways resistance is increased.
== END ==
LOC: HRSP 09:11
PROVIDERS: ATTEND Internal Medicine
DX: J44.9 Chronic obstructive pulmonary disease, unspecified (principal)
CPT/HCPCS: 36600; 82805; 94060; 94726; 94729

== ENCOUNTER 2017-02-18 06:25 | Emergency (ER) | payer MEDICARE, OTHER ==
[~2017-02-18] VITALS: Ht 165.1 cm; Wt 50.5 kg
[2017-02-18 06:35] VITALS: BP 137/74; PULSE 100; RESP 24; TEMP 97.8; O2SAT 95
[2017-02-18] MEDS ORDERED: PRED20 PO (07:16)
[2017-02-18] MEDS ORDERED: ZITHTAB PO (07:16)
[2017-02-18 07:18] VITALS: BP 130/65; PULSE 102; RESP 16; TEMP 97.8; O2SAT 98
--- NOTE | 2017-02-18 07:19 | PD ---
HPI Chief Complaint: Respiratory Symptoms Time Seen by Provider: 07:09 Travel History International Travel<30 days: No Contact w/Intl Traveler<30days: No Traveled to known affect area: No History of Present Illness HPI The patient was seen and examined in the presence of the nurse. This patient complains of coughing up yellow phlegm and congestion and wheezing. She has COPD and continues to smoke. She has a nebulizer and inhaler at home. Denies fever or chest pain. Symptoms severity is mild to moderate. No alleviating factors PFSH Past Medical History Anemia: Yes Arthritis: No Asthma: Yes Blood Disorders: No Anxiety: Yes Depression: No Heart Rhythm Problems: Yes (TACHY) Cancer: No Cardiac Catheterization: Yes (normal per pt) Cardiovascular Problems: Yes (TACHYCARDIC 04/09/05) High Cholesterol: No Chest Pain: No Congestive Heart Failure: No COPD: Yes Cerebrovascular Accident: No Diminished Hearing: No Endocrine: No Gastrointestinal Disorders: Yes Genitourinary: No Headaches: Yes (sometimes) Hypertension: No Immune Disorder: Yes (HIV) Musculoskeletal: No Neurologic: Yes Psychiatric: Yes Reproductive: No Respiratory: Yes (ASTHMA AND BRONCHITIS) Integumentary: Yes (ECZEMA) Immunizations Current: Yes Migraines: Yes Pneumonia: Yes Seizures: Yes Shingles: Yes (JULY 2014) Sleep Apnea: No Tetanus Vaccination: Unknown Influenza Vaccination: No ?: Not Menopausal: Yes : 3 Para: 3 Past Surgical History Abdominal Surgery: No AICD: No Arteriovenous Shunt: No Cardiac Surgery: No Ear Surgery: No Endocrine Surgery: Yes (LYMPH NODE REMOVED FROM LEFT SIDE OF NECK IN 1994) Eye Surgery: No Genitourinary Surgery: No Gynecologic Surgery: No Insulin Pump: No Joint Replacement: No Oral Surgery: Yes (TEETH REMOVED) Pacemaker: No Thoracic Surgery: No Other Surgery: Yes Social History Alcohol Use: No Tobacco Use: Yes (1 PPD) Substance Use: No Allergies-Medications (Allergen,Severity, Reaction): Coded Allergies: celecoxib (Unverified Allergy, Severe, Hallucinations, 02/18/17) diatrizoate meglumine (Unverified Allergy, Severe, SIEZURE, 02/18/17) gadobenic acid (Unverified Allergy, Severe, SIEZURE, 02/18/17) gadodiamide (Unverified Allergy, Severe, SIEZURE, 02/18/17) gadoteridol (Unverified Allergy, Severe, SIEZURE, 02/18/17) iodixanol (Unverified Allergy, Severe, SIEZURE, 02/18/17) iohexol (Unverified Allergy, Severe, SIEZURE, 02/18/17) Reported Meds & Prescriptions Reported Meds & Active Scripts Active Albuterol Neb (Albuterol Sulfate) 2.5 Mg/3 Ml Neb 2.5 Mg NEB QID NEB Reported Dilantin (Phenytoin Extended) 100 Mg Cap 100 Mg PO DAILY Stribild (Vqxvsisssjom-Urnlwnumfv-Beepsascrgbt-Tenofvir) [phone] Mg Tab 1 Tab PO DAILY With food Albuterol Neb (Albuterol Sulfate) 2.5 Mg/0.5 Ml Neb 2.5 Mg NEB TID NEB PRN Note: The Albuterol Sulfate Inhalation Solution is concentrated and must be diluted. Read complete instructions carefully before using. Ventolin Hfa 18 GM Inh (Albuterol Sulfate) 90 Mcg/Act Aer 2 Puff INH Q4-6H PRN Review of Systems General / Constitutional: No: Fever HENT: No: Headaches Cardiovascular: No: Chest Pain or Discomfort Respiratory: Positive: Cough, Shortness of Breath, Wheezing Physical Exam Narrative GENERAL: Well-nourished, well-developed patient in no apparent distress. SKIN: Focused skin assessment reveals no rash and nodules. Skin is Warm and dry. HEAD: Atraumatic. Normocephalic. EYES: Pupils equal and round. No scleral icterus. No injection or drainage. ENT: No nasal bleeding or discharge. Mucous membranes pink and moist. NECK: Trachea midline. No JVD. CARDIOVASCULAR: Regular rate and rhythm. No murmur appreciated. RESPIRATORY: No accessory muscle use. Minor congestion and rare expiratory wheeze . Breath sounds equal bilaterally. GASTROINTESTINAL: Abdomen soft, non-tender, nondistended. Hepatic and splenic margins not palpable. MUSCULOSKELETAL: No obvious deformities. No clubbing. No cyanosis. No edema. NEUROLOGICAL: Awake and alert. No obvious cranial nerve deficits. Motor grossly within normal limits. Normal speech. PSYCHIATRIC: Appropriate mood and affect; insight and judgment is weak . Data Data Last Documented VS Vital Signs Date Time Temp Pulse Resp B/P (MAP) Pulse Ox O2 Delivery O2 Flow Rate FiO2 02/18/17 06:37 95 Room Air 11/3/17 06:35 97.8 100 24 137/74 (95) MDM Medical Decision Making Medical Screen Exam Complete: Yes Emergency Medical Condition: Yes Medical Record Reviewed: Yes Differential Diagnosis Differential diagnosis includes COPD, asthma, pneumonia, bronchitis, CHF Narrative Course I have reviewed the patient's electronic medical record. She is a frequent visitor for COPD We discussed the most important thing being her smoking cessation. I wrote her Zithromax and course of prednisone. She has nebulizer to use if needed. Saturations are good on room air. Diagnosis Primary Impression: COPD exacerbation Additional Instructions: The patient was advised to follow up with their physician and return if they worsen. Med/Other Pt SpecificInfo: Prescription(s) given Scripts Prednisone (Prednisone) 20 Mg Tab 40 MG PO DAILY, #10 TAB 0 Refills Take 40 mg (2 tablets) daily for 5 days Prov: Yosvany Jay MD 02/18/17 Azithromycin (Zithromax Z-Clemente) 250 Mg Dspk 250 MG PO DIRECTED for Infection, #1 DSPK 0 Refills 500 MG (2 tabs) day 1, then 1 tab days 2-5. Prov: Yosvany Jay MD 02/18/17 Disposition: 01 DISCHARGE HOME Condition: Stable Yosvany Jay MD Feb 18, 2017 07:19
[2017-02-18] MEDS ORDERED: PRED50 PO (15:26)
== END 2017-02-18 07:41 | disposition home or self-care (01) ==
LOC: PHED 06:25
DX: J44.1 Chronic obstructive pulmonary disease with (acute) exacerbation (principal); F17.210 Nicotine dependence, cigarettes, uncomplicated
CPT/HCPCS: 99284

== ENCOUNTER 2017-02-18 14:04 | Emergency (ER) | payer MEDICARE, OTHER ==
[~2017-02-18] VITALS: Ht 165.1 cm; Wt 55.0 kg
[~2017-02-18 14:04] MED LIST changes: +PRED20 PO; +ZITHTAB PO
[2017-02-18 14:15] VITALS: O2SAT 98
[2017-02-18] MEDS ORDERED: SODIUM CHLORIDE 0.9% FLUSH 10 ML FLUSH IVF PRN (14:15)
[2017-02-18 14:16] VITALS: BP 111/62; PULSE 111; RESP 22; TEMP 99.1; O2SAT 95
[2017-02-18 14:18] VITALS: O2SAT 96
[2017-02-18] MEDS: RESP: ALBUTEROL 2.5 MG/IPRATROPIUM 0.5 MG NEB (SCH) INH ×2 (14:30→14:31)
[2017-02-18] MEDS ORDERED: PRED50 PO (15:26)
--- NOTE | 2017-02-18 15:27 | PD ---
HPI Chief Complaint: Respiratory Symptoms Time Seen by Provider: 14:08 Travel History International Travel<30 days: No Contact w/Intl Traveler<30days: No Traveled to known affect area: No History of Present Illness HPI The patient's for 7 years old and has COPD. She arrives with shortness of breath and wheezing. She was seen at the [facility] this morning and there was determined to have had a COPD exacerbation and she was discharged with a prescription for prednisone 40 mg tablets and for azithromycin. She reports a 40 mg tablets of prednisone does not typically help her. No chest pain. No fever. Occasional coughing noted, non-productive. PFSH Past Medical History Anemia: Yes Arthritis: No Asthma: Yes Blood Disorders: No Anxiety: Yes Depression: No Heart Rhythm Problems: Yes Cancer: No Cardiac Catheterization: Yes Cardiovascular Problems: Yes (TACHYCARDIC 04/09/05) High Cholesterol: No Chest Pain: No Congestive Heart Failure: No COPD: Yes Cerebrovascular Accident: No Diminished Hearing: No Endocrine: No Gastrointestinal Disorders: Yes Genitourinary: No Headaches: Yes Hypertension: No Immune Disorder: Yes (HIV) Musculoskeletal: No Neurologic: Yes Psychiatric: Yes Reproductive: No Respiratory: Yes (ASTHMA AND BRONCHITIS) Integumentary: Yes (ECZEMA) Immunizations Current: Yes Migraines: Yes Pneumonia: Yes Seizures: Yes Shingles: Yes Sleep Apnea: No Influenza Vaccination: No ?: Not Menopausal: Yes : 3 Para: 3 Past Surgical History Abdominal Surgery: No AICD: No Arteriovenous Shunt: No Cardiac Surgery: No Ear Surgery: No Endocrine Surgery: Yes (LYMPH NODE REMOVED FROM LEFT SIDE OF NECK IN 1994) Eye Surgery: No Genitourinary Surgery: No Gynecologic Surgery: No Insulin Pump: No Joint Replacement: No Oral Surgery: Yes (TEETH REMOVED) Pacemaker: No Thoracic Surgery: No Other Surgery: Yes Social History Alcohol Use: No Tobacco Use: Yes (1.5 ppd) Substance Use: No Allergies-Medications (Allergen,Severity, Reaction): Coded Allergies: celecoxib (Unverified Allergy, Severe, Hallucinations, 02/18/17) diatrizoate meglumine (Unverified Allergy, Severe, SIEZURE, 02/18/17) gadobenic acid (Unverified Allergy, Severe, SIEZURE, 02/18/17) gadodiamide (Unverified Allergy, Severe, SIEZURE, 02/18/17) gadoteridol (Unverified Allergy, Severe, [facility], 02/18/17) iodixanol (Unverified Allergy, Severe, [facility], 02/18/17) iohexol (Unverified Allergy, Severe, [facility], 02/18/17) Reported Meds & Prescriptions Reported Meds & Active Scripts Active Prednisone 20 Mg Tab 40 Mg PO DAILY Take 40 mg (2 tablets) daily for 5 days Zithromax Z-Clemente (Azithromycin) 250 Mg Dspk 250 Mg PO DIRECTED 500 MG (2 tabs) day 1, then 1 tab days 2-5. Albuterol Neb (Albuterol Sulfate) 2.5 Mg/3 Ml Neb 2.5 Mg NEB QID NEB Reported Dilantin (Phenytoin Extended) 100 Mg Cap 100 Mg PO DAILY Stribild (Qzlqeybtnpgc-Naypjikltb-Ywijgnixyujy-Tenofvir) [phone] Mg Tab 1 Tab PO DAILY With food Albuterol Neb (Albuterol Sulfate) 2.5 Mg/0.5 Ml Neb 2.5 Mg NEB TID NEB PRN Note: The Albuterol Sulfate Inhalation Solution is concentrated and must be diluted. Read complete instructions carefully before using. Ventolin Hfa 18 GM Inh (Albuterol Sulfate) 90 Mcg/Act Aer 2 Puff INH Q4-6H PRN Review of Systems Except as stated in HPI: all other systems reviewed are Neg General / Constitutional: No: Fever Physical Exam Narrative GENERAL: 47 yo F, WNWD, NAD SKIN: Warm and dry. HEAD: Atraumatic. Normocephalic. EYES: Pupils equal and round. No scleral icterus. No injection or drainage. ENT: No nasal bleeding or discharge. Mucous membranes pink and moist. NECK: Trachea midline. No JVD. CARDIOVASCULAR: Tachycardia. Regular rhythm. RESPIRATORY: Minimal wheezing. No significant tachypnea. GASTROINTESTINAL: Abdomen soft, non-tender, nondistended. Hepatic and splenic margins not palpable. MUSCULOSKELETAL: Extremities without clubbing, cyanosis, or edema. No obvious deformities. NEUROLOGICAL: Awake and alert. No obvious cranial nerve deficits. Motor grossly within normal limits. Five out of 5 muscle strength in the arms and legs. Normal speech. PSYCHIATRIC: Appropriate mood and affect; insight and judgment normal. Data Data Last Documented VS Vital Signs Date Time Temp Pulse Resp B/P (MAP) Pulse Ox O2 Delivery O2 Flow Rate FiO2 02/18/17 14:18 Nasal Cannula 2.00 02/18/17 14:18 96 02/18/17 14:16 99.1 111 22 111/62 (78) VS reviewed Orders Orders Ecg Monitoring (02/18/17 14:13) Oximetry (02/18/17 14:13) Oxygen Administration (02/18/17 14:13) Sodium Chloride 0.9% Flush (Ns Flush) (02/18/17 14:15) Albuterol-Ipratropium Neb (Duoneb Neb) (02/18/17 14:15) MDM Medical Decision Making Medical Screen Exam Complete: Yes Emergency Medical Condition: Yes Medical Record Reviewed: Yes Differential Diagnosis COPD exacerbation, pneumonia, pneumothorax Narrative Course Patient received 3 rounds of DuoNebs and reports feeling much better. We will provide Solu-Medrol and prednisone 50 mg which she states is the only prednisone that works for her and should hopefully help her feel better. Pt verbalized agreement to discharge her 40mg prednisone tabs and to try more earnestly to quite smoking. Diagnosis Primary Impression: COPD exacerbation Referrals: Primary Care Physician 2 days Additional Instructions: You have a choice when it comes to health care, and we are glad that you chose [facility]. Hopefully, we have met your expectations on today's visit. You are welcome to return to [facility] at any time, as we are committed to meeting the health care needs of our community. Med/Other Pt SpecificInfo: Prescription(s) given Scripts Prednisone (Prednisone) 50 Mg Tab 50 MG PO DAILY for 4 Days, #4 TAB 0 Refills Prov: Earl Rodriguez MD 02/18/17 Disposition: 01 DISCHARGE HOME Condition: Stable Earl Rodriguez MD Feb 18, 2017 15:26
[2017-02-18] MEDS ORDERED: methylPREDNISolone SOD SUCC 125 MG/2 ML VIAL IV PUSH ONE (15:30)
[2017-02-18 17:04] VITALS: BP 122/63
--- NOTE | 2017-02-20 09:07 | EKG ---
Date Performed: 02/18/2017 Time Performed: 14:24:43 PTAGE: 47 years EKG: SINUS TACHYCARDIA WITH SHORT NE INTERVAL MODERATE T-WAVE ABNORMALITY, CONSIDER LATERAL ISCH EMIA MODERATE T-WAVE ABNORMALITY, CONSIDER INFERIOR ISCHEMIA Compared to prior tracing no significant change ABNORMAL ECG PREVIOUS TRACING : 08/11/15 @ 1817 DOCTOR: Hector Pride Interpretating Date/Time 02/20/2017 09:06:10
== END 2017-02-18 17:07 | disposition home or self-care (01) ==
LOC: NEPC 14:04
DX: J44.1 Chronic obstructive pulmonary disease with (acute) exacerbation (principal); R00.0 Tachycardia, unspecified; R94.31 Abnormal electrocardiogram [ECG] [EKG]; D64.9 Anemia, unspecified; F41.9 Anxiety disorder, unspecified; R56.9 Unspecified convulsions; F17.200 Nicotine dependence, unspecified, uncomplicated; Z79.52 Long term (current) use of systemic steroids; Z21 Asymptomatic human immunodeficiency virus [HIV] infection status
CPT/HCPCS: 93005; 94640; 94664; 96374; 99285; J2930

== ENCOUNTER 2017-02-23 15:39 | Emergency (ER) | payer MEDICARE, OTHER ==
[~2017-02-23] VITALS: Ht 165.1 cm; Wt 54.5 kg
[~2017-02-23 15:39] MED LIST changes: -OXYC1TAB63 PO; -PRED20 PO; -SYMB160A INH; -[UNRECOGNIZED DRUG - CODE] TOPICAL
[2017-02-23 15:40] VITALS: BP 104/56; PULSE 113; RESP 20; TEMP 98.7; O2SAT 89
--- NOTE | 2017-02-23 16:18 | RADRPT ---
EXAM DATE/TIME: 02/23/2017 16:02 [place] COMPARISON: CT THORAX W/O CONTRAST, October 11, 2014, 16:09. CHEST PA & LAT, May 20, 2016, 1:11. INDICATIONS : Patient complains of shortness of breath, cough, and chest pain. MEDICAL HISTORY : None. SURGICAL HISTORY : None. ENCOUNTER: Initial ACUITY: 1 day PAIN SCORE: 3/10 LOCATION: chest FINDINGS: Frontal and lateral views the chest demonstrate a normal-sized cardiac silhouette. Lungs are mildly h yperinflated with mild bullous changes at the lung apices. At the right lower lung zone on the fronta l projection there is a questionable airspace opacity versus nodule. It measures approximately 13 mm. No pleural effusion or pneumothorax is identified. Bones and soft tissues demonstrate no acute findi ng. CONCLUSION: 1. Questionable mild airspace opacity at the right lung base versus nodule. Consider followup chest x -ray to confirm resolution or followup chest CT to further characterize. 2. There are stable background lung changes characteristic of obstructive airways disease/emphysema. Nathanael Chen MD on February 23, 2017 at 16:14 Board Certified Radiologist. This report was verified electronically.
[2017-02-23] MEDS ORDERED: SODIUM CHLOR 0.9% 1000 ML INJ 1,000 ML IV ONE (17:30)
[2017-02-23] MEDS ORDERED: methylPREDNISolone SOD SUCC 125 MG/2 ML VIAL IV PUSH ONE (17:30)
--- NOTE | 2017-02-23 17:43 | PD ---
HPI Chief Complaint: Respiratory Symptoms Time Seen by Provider: 17:24 Travel History International Travel<30 days: No Contact w/Intl Traveler<30days: No Traveled to known affect area: No History of Present Illness HPI 47yoF with PMH of HIV on medication viral load undetectable as per pt, COPD here with c/o sob for 1 week. States like it feels like her COPD but her medications are not working. Also with chest tightness. Said she felt warm last night and think she had fever so took motrin. Also sob with walking for a short distance which is new for 1 week. Denies any n/v, abdominal pain, focal weakness or numbness. Pt has verification manager Dr. Kim and ID physician that she follows up with every 3 months. Denies using oxygen at home. PFSH Past Medical History Anemia: Yes Arthritis: No Asthma: Yes Blood Disorders: No Anxiety: Yes Depression: No Heart Rhythm Problems: Yes Cancer: No Cardiac Catheterization: Yes Cardiovascular Problems: Yes (TACHYCARDIC 04/09/05) High Cholesterol: No Chest Pain: No Congestive Heart Failure: No COPD: Yes Cerebrovascular Accident: No Diminished Hearing: No Endocrine: No Gastrointestinal Disorders: Yes Genitourinary: No Headaches: Yes Hypertension: No Immune Disorder: Yes (HIV) Musculoskeletal: No Neurologic: Yes Psychiatric: Yes Reproductive: No Respiratory: Yes (ASTHMA AND BRONCHITIS) Integumentary: Yes (ECZEMA) Immunizations Current: Yes Migraines: Yes Pneumonia: Yes Seizures: Yes Shingles: Yes Sleep Apnea: No ?: Not LMP: 4 years ago Menopausal: Yes : 3 Para: 3 Past Surgical History Abdominal Surgery: No AICD: No Arteriovenous Shunt: No Cardiac Surgery: No Ear Surgery: No Endocrine Surgery: Yes (LYMPH NODE REMOVED FROM LEFT SIDE OF NECK IN 1994) Eye Surgery: No Genitourinary Surgery: No Gynecologic Surgery: No Insulin Pump: No Joint Replacement: No Oral Surgery: Yes (TEETH REMOVED) Pacemaker: No Thoracic Surgery: No Other Surgery: Yes Social History Alcohol Use: No Tobacco Use: Yes (1.5 ppd) Substance Use: No Allergies-Medications (Allergen,Severity, Reaction): Coded Allergies: celecoxib (Unverified Allergy, Severe, Hallucinations, 02/18/17) diatrizoate meglumine (Unverified Allergy, Severe, SIEZURE, 02/18/17) gadobenic acid (Unverified Allergy, Severe, SIEZURE, 02/18/17) gadodiamide (Unverified Allergy, Severe, SIEZURE, 02/18/17) gadoteridol (Unverified Allergy, Severe, SIEZURE, 02/18/17) iodixanol (Unverified Allergy, Severe, SIEZURE, 02/18/17) iohexol (Unverified Allergy, Severe, SIEZURE, 02/18/17) Reported Meds & Prescriptions Reported Meds & Active Scripts Active Prednisone 50 Mg Tab 50 Mg PO DAILY 4 Days Zithromax Z-Clemente (Azithromycin) 250 Mg Dspk 250 Mg PO DIRECTED 500 MG (2 tabs) day 1, then 1 tab days 2-5. Albuterol Neb (Albuterol Sulfate) 2.5 Mg/3 Ml Neb 2.5 Mg NEB QID NEB Reported Dilantin (Phenytoin Extended) 100 Mg Cap 100 Mg PO DAILY Stribild (Rivzcgvufesf-Khlrplvqnz-Ubdidsucckeu-Tenofvir) [id number] Mg Tab 1 Tab PO DAILY With food Albuterol Neb (Albuterol Sulfate) 2.5 Mg/0.5 Ml Neb 2.5 Mg NEB TID NEB PRN Note: The Albuterol Sulfate Inhalation Solution is concentrated and must be diluted. Read complete instructions carefully before using. Ventolin Hfa 18 GM Inh (Albuterol Sulfate) 90 Mcg/Act Aer 2 Puff INH Q4-6H PRN Review of Systems Except as stated in HPI: all other systems reviewed are Neg Physical Exam Narrative GENERAL: 47yo F in mild distress. SKIN: Focused skin assessment warm/dry. HEAD: Atraumatic. Normocephalic. EYES: Pupils equal and round. No scleral icterus. No injection or drainage. ENT: No nasal bleeding or discharge. Mucous membranes pink and moist. NECK: Trachea midline. No JVD. CARDIOVASCULAR: Tachycardic at 108bpm. RESPIRATORY: + accessory muscle use. End expiratory wheezing on right lower lungs. GASTROINTESTINAL: Abdomen soft, non-tender, nondistended. MUSCULOSKELETAL: No obvious deformities. No clubbing. No cyanosis. No edema. NEUROLOGICAL: Awake and alert. No obvious cranial nerve deficits. Motor grossly within normal limits. Normal speech. PSYCHIATRIC: Appropriate mood and affect; insight and judgment normal. Data Data Last Documented VS Vital Signs Date Time Temp Pulse Resp B/P (MAP) Pulse Ox O2 Delivery O2 Flow Rate FiO2 02/23/17 20:28 02/23/17 17:31 96 Nasal Cannula 2.00 02/23/17 15:40 98.7 113 20 Orders Orders Chest, Pa & Lat (02/23/17 ) Complete Blood Count With Diff (02/23/17 17:29) Basic Metabolic Panel (Bmp) (02/23/17 17:29) B-Type Natriuretic Peptide (02/23/17 17:29) Act Partial Throm Time (Ptt) (02/23/17 17:29) Prothrombin Time / Inr (Pt) (02/23/17 17:29) Magnesium (Mg) (02/23/17 17:29) Troponin I (02/23/17 17:29) Blood Culture (02/23/17 17:29) Electrocardiogram (02/23/17 17:29) Methylprednisolone So Succ Inj (Solumedr (02/23/17 17:30) Albuterol-Ipratropium Neb (Duoneb Neb) (02/23/17 17:30) Lactic Acid Sepsis Protocol (02/23/17 17:29) Sodium Chlor 0.9% 1000 Ml Inj (Ns 1000 M (02/23/17 17:30) Ct Thorax/ Chest Wo Iv Contras (02/23/17 ) Arterial Blood Gas (Abg) (02/23/17 ) Ceftriaxone Inj (Rocephin Inj) (02/23/17 19:45) Azithromycin (Zithromax) (02/23/17 19:45) Labs Laboratory Tests Test 02/23/17 17:54 02/23/17 18:00 Blood Gas Puncture Site RT RADIAL Blood Gas Patient Temperature 98.6 Blood Gas HCO3 29 mmol/L Blood Gas Base Excess 4.5 mmol/L Blood Gas Oxygen Saturation 90 % Arterial Blood pH 7.45 Arterial Blood Partial Pressure CO2 42 mmHg Arterial Blood Partial Pressure O2 68 mmHG Arterial Blood Oxygen Content 17.4 Vol % Arterial Blood Carboxyhemoglobin 2.9 % Arterial Blood Methemoglobin 0.9 % Blood Gas Hemoglobin 13.8 G/DL Oxygen Delivery Device NASAL CANNULA Blood Gas Liter Flow 2 L/M White Blood Count 7.5 TH/MM3 Red Blood Count 4.22 MIL/MM3 Hemoglobin 13.7 GM/DL Hematocrit 39.7 % Mean Corpuscular Volume 94.0 FL Mean Corpuscular Hemoglobin 32.4 PG Mean Corpuscular Hemoglobin Concent 34.4 % Red Cell Distribution Width 13.9 % Platelet Count 285 TH/MM3 Mean Platelet Volume 9.3 FL Neutrophils (%) (Auto) 56.6 % Lymphocytes (%) (Auto) 31.7 % Monocytes (%) (Auto) 8.2 % Eosinophils (%) (Auto) 2.8 % Basophils (%) (Auto) 0.7 % Neutrophils # (Auto) 4.3 TH/MM3 Lymphocytes # (Auto) 2.4 TH/MM3 Monocytes # (Auto) 0.6 TH/MM3 Eosinophils # (Auto) 0.2 TH/MM3 Basophils # (Auto) 0.1 TH/MM3 CBC Comment DIFF FINAL Differential Comment Prothrombin Time 11.5 SEC Prothromb Time International Ratio 1.0 RATIO Activated Partial Thromboplast Time 26.8 SEC Blood Urea Nitrogen 9 MG/DL Creatinine 0.88 MG/DL Random Glucose 92 MG/DL Calcium Level 8.2 MG/DL Magnesium Level 2.4 MG/DL Sodium Level 139 MEQ/L Potassium Level 3.5 MEQ/L Chloride Level 103 MEQ/L Carbon Dioxide Level 29.8 MEQ/L Anion Gap 6 MEQ/L Estimat Glomerular Filtration Rate 83 ML/MIN Lactic Acid Level 1.1 mmol/L Troponin I LESS THAN 0.02 NG/ML B-Type Natriuretic Peptide 36 PG/ML [facility] Medical Decision Making Medical Screen Exam Complete: Yes Emergency Medical Condition: Yes Interpretation(s) EKG: Sinus tachycardia at 104bpm. RAD. LVH. Differential Diagnosis COPD exacerbation vs. pneumonia vs. ACS vs. CHF Narrative Course 47yo F with SOB and wheezing on exam. States her viral load is undetectable and she follows with her infectious disease doctor closely. Pt afebrile here. Mildly tachycardic initially. Labs reviewed, no leukocytosis. H/H normal. Lactic acid normal. Troponin negative. BNP normal. ABG showed O2 sat 90% on RA. CXR showed questionable mild airspace opacity in right lung base consider CT chest. CT chest showed transverse type appearance suggesting an infectious etiology bilaterally. Severe bullous emphysematous changes. Pt given duonebs and methylprednisolone 125mg IV. Pt reevaluated at bedside and feels much better, saturating at 92% on RA. HR has also improved to 90s. Denies any sob or chest pain. Speaking in complete sentences and no retractions. Pt given ceftriaxone and azithromycin. Diagnosis Primary Impression: COPD exacerbation Additional Impression: Pneumonia Qualified Codes: J18.9 - Pneumonia, unspecified organism Patient Instructions: General Instructions Departure Forms: Tests/Procedures Additional Instructions: Please follow up with your verification manager in 2-3 days. Return to the ED if symptoms worsen. Med/Other Pt SpecificInfo: Prescription(s) given Scripts Azithromycin (Azithromycin) 250 Mg Tab 250 MG PO DAILY for Infection for 4 Days, #4 TAB 0 Refills Prov: Emperatriz Ross DO 02/23/17 Albuterol 18 GM Inh (Ventolin Hfa 18 GM Inh) 90 Mcg/Act Aer 2 PUFF INH Q4H Y for SHORTNESS OF BREATH, #1 INHALER 0 Refills Prov: Emperatriz Ross DO 02/23/17 Prednisone (Deltasone) 20 Mg Tab 20 MG PO BID for 5 Days, #10 TAB 0 Refills Prov: Emperatriz Ross DO 02/23/17 Disposition: 01 DISCHARGE HOME Condition: Stable Emperatriz Ross DO Feb 23, 2017 17:43
[2017-02-23 17:56] LABS: BLOOD GAS BASE EXCESS 4.5 mmol/L (-2-2); BLOOD GAS CARBOXYHEMOGLOBIN 2.9 % (0-4); BLOOD GAS HCO3 29 mmol/L (22-26); BLOOD GAS METHEMOGLOBIN 0.9 % (0-2); BLOOD GAS O2 HGB SATURATION 90 % (90-100); BLOOD GAS OXYGEN CONTENT 17.4 Vol % (12.0-20.0); BLOOD GAS PCO2 42 mmHg (38-42); BLOOD GAS PO2 68 mmHG (61-120); BLOOD GAS TOTAL HGB 13.8 G/DL (12.0-16.0); TEMP CORR TO 98.6
[2017-02-23 17:57] LABS: CRITICAL VALUE NO; DRAW SITE RT RADIAL; LITER FLOW 2 L/M; NUMBER OF ARTERIAL PUNCTURES 1; OXYGEN DEVICE NASAL CANNULA; STAT YES; ULNAR PULSE PRESENT
[2017-02-23 18:20] LABS: AUTOMATED NEUTROPHIL # 4.3 TH/MM3 (1.8-7.7); BASOPHIL # 0.1 TH/MM3 (0-0.2); BASOPHIL % 0.7 % (0.0-2.0); EOSINOPHIL # 0.2 TH/MM3 (0-0.4); EOSINOPHIL % 2.8 % (0.0-4.0); HEMATOCRIT 39.7 % (35.0-46.0); HEMO FLAGS DIFF FINAL; LYMPH % 31.7 % (9.0-44.0); LYMPHOCYTE # 2.4 TH/MM3 (1.0-4.8); MEAN CORPUSCULAR HEMOGLOBIN 32.4 PG (27.0-34.0); MEAN CORPUSCULAR HGB CONC 34.4 % (32.0-36.0); MONO % 8.2 % (0.0-8.0); NEUT % 56.6 % (16.0-70.0); PLATELET COUNT 285 TH/MM3 (150-450); RED BLOOD COUNT 4.22 MIL/MM3 (4.00-5.30); RED CELL DISTRIBUTION WIDTH 13.9 % (11.6-17.2); WHITE BLOOD COUNT 7.5 TH/MM3 (4.0-11.0)
[2017-02-23 18:33] LABS: APTT (PATIENT) 26.8 SEC (24.3-30.1); PROTHROMBIN TIME - PATIENT 11.5 SEC (9.8-11.6)
[2017-02-23 18:43] LABS: ANION GAP 6 MEQ/L (5-15); BICARBONATE 29.8 MEQ/L (21.0-32.0); BLOOD UREA NITROGEN 9 MG/DL (7-18); CHLORIDE 103 MEQ/L (98-107); GLOMERULAR FILTRATION RATE 83 ML/MIN (>89); MAGNESIUM 2.4 MG/DL (1.5-2.5); POTASSIUM 3.5 MEQ/L (3.5-5.1); SODIUM (NA) 139 MEQ/L (136-145)
--- NOTE | 2017-02-23 18:57 | RADRPT ---
EXAM DATE/TIME: 02/23/2017 18:22 [facility] COMPARISON: CT THORAX W/O CONTRAST, October 11, 2014, 16:09. INDICATIONS : Short of breath for one week. RADIATION DOSE: 4.69 CTDIvol (mGy) MEDICAL HISTORY : Cardiovascular disease. Seizures. SURGICAL HISTORY : None. ENCOUNTER: Initial ACUITY: 1 week PAIN SCALE: 5/10 LOCATION: Bilateral chest TECHNIQUE: Volumetric scanning of the chest was performed. Using automated exposure control and adjustment of t he mA and/or kV according to patient size, radiation dose was kept as low as reasonably achievable to obtain optimal diagnostic quality images. DICOM format image data is available electronically for r eview and comparison. Follow-up recommendations for detected pulmonary nodules are based at a minimum on nodule size and pa tient risk factors according to Fleischner Society Guidelines. FINDINGS: LUNGS: Severe bullous emphysematous changes are again seen. A rounded area of consolidation is noted within the posterior costophrenic angle on the left. This is an area of prior consolidation that was much la rger on the prior study. Peribronchial thickening is seen involving the airways of both upper and low er lobes. There is a tree and bud type appearance scattered throughout both lungs. Multiple scattered areas of nodularity remain long-term stable. No new areas of nodularity appreciated. PLEURAE: There is no pleural thickening or pleural effusion. MEDIASTINUM: The heart and great vessels demonstrate no acute abnormality. There is no mediastinal or hilar lymph adenopathy. AXILLAE: Within normal limits. No lymphadenopathy. MUSCULOSKELETAL: Within normal limits for patient age. MISCELLANEOUS: The visualized upper abdominal organs demonstrate no acute abnormality. CONCLUSION: 1. Transverse type appearance suggesting an infectious etiology bilaterally. 2. Severe bullous emphysematous changes with peribronchial thickening consistent with bronchitis/bron chiolitis. 3. Long-term stable areas of nodularity. Howard Jackson Jr., MD on February 23, 2017 at 18:51 Board Certified Radiologist. This report was verified electronically.
[2017-02-23] MEDS: RESP: ALBUTEROL 2.5 MG/IPRATROPIUM 0.5 MG NEB (SCH) INH (19:43)
[2017-02-23] MEDS ORDERED: cefTRIAXone INJ 1,000 MG in SODIUM CHLORIDE 0.9% INJ 100 ML IV ONE (19:45)
[2017-02-23] MEDS ORDERED: AZITHROMYCIN 250 MG TAB PO ONE (19:45)
--- NOTE | 2017-02-23 20:35 | EKG ---
Date Performed: 02/23/2017 Time Performed: 18:36:18 PTAGE: 47 years EKG: SINUS TACHYCARDIA POSSIBLE LEFT ATRIAL ENLARGEMENT POSSIBLE LEFT VENTRICULAR HYPERTROPHY NO NSPECIFIC ST & T-WAVE ABNORMALITY ABNORMAL ECG Compared to prior electrocardiogram, ST segment and T wave changes are less marked PREVIOUS TRACING : 02/18/2017 14.24 DOCTOR: Nigel Mora Interpretating Date/Time 02/23/2017 20:34:41
[2017-02-23] MEDS ORDERED: PRED-503 PO (21:04)
[2017-02-23] MEDS ORDERED: AZIT250T3 PO (21:04)
[2017-02-23] MEDS ORDERED: VENTAER INH (21:04)
== END 2017-02-23 21:10 | disposition home or self-care (01) ==
LOC: NEPD 15:39
DX: J44.0 Chronic obstructive pulmonary disease with (acute) lower respiratory infection (principal); Z21 Asymptomatic human immunodeficiency virus [HIV] infection status; J18.9 Pneumonia, unspecified organism; R94.31 Abnormal electrocardiogram [ECG] [EKG]; F17.210 Nicotine dependence, cigarettes, uncomplicated
CPT/HCPCS: 36600; 71020; 71250; 80048; 82805; 83605; 83735; 83880; 84484; 85025; 85610; 85730; 87040; 93005; 94640; 94664; 96361; 96365; 96375; 99285; J0696; J2930; J7030

== ENCOUNTER 2017-05-05 13:11 | Emergency (ER) | payer MEDICARE, OTHER ==
[~2017-05-05] VITALS: Ht 160 cm; Wt 55.0 kg
[~2017-05-05 13:11] MED LIST changes: +AZIT250T3 PO; +PRED-503 PO
[2017-05-05 13:14] VITALS: BP 103/53; PULSE 133; RESP 16; O2SAT 90
--- NOTE | 2017-05-05 13:58 | RADRPT ---
EXAM DATE/TIME: 05/05/2017 13:34 [facility] COMPARISON: CHEST PA & LAT, February 23, 2017, 16:02. INDICATIONS : Cough, congestion, fever MEDICAL HISTORY : Chronic obstructive pulmonary disease. SURGICAL HISTORY : None. ENCOUNTER: Initial ACUITY: 1 week PAIN SCORE: 0/10 LOCATION: Bilateral chest FINDINGS: Lungs are hyperinflated. No evidence of infiltrate or effusion. Cardiac mediastinal contours are sati sfactory and stable. CONCLUSION: Emphysema. No acute disease. Nathanael Mckeon MD on May 05, 2017 at 13:52 Board Certified Radiologist. This report was verified electronically.
[2017-05-05] MEDS: RESP: ALBUTEROL 2.5 MG/IPRATROPIUM 0.5 MG NEB (SCH) INH (14:59)
[2017-05-05] MEDS ORDERED: methylPREDNISolone SOD SUCC 125 MG/2 ML VIAL IV PUSH ONE (15:00)
[2017-05-05] MEDS ORDERED: SODIUM CHLORIDE 0.9% FLUSH 10 ML FLUSH IVF PRN (15:00)
[2017-05-05] MEDS ORDERED: RESP: BUDESONIDE 0.5 MG/2 ML NEB NEB ONE (15:00)
--- NOTE | 2017-05-05 15:01 | PD ---
HPI Chief Complaint: Respiratory Symptoms Time Seen by Provider: 14:38 Travel History International Travel<30 days: No Contact w/Intl Traveler<30days: No Traveled to known affect area: No History of Present Illness HPI Patient is a 47-year-old female presenting to emergency department for evaluation of shortness of breath and cold symptoms. Patient states her symptoms started with nasal congestion, runny nose, cough, chills approximately a week ago. Symptoms started to get progressively worse, she has been using her inhaler or nebulizer treatments, her last nebulizer was earlier this morning. She reports increasing shortness of breath. She states that she gets dizzy on occasion after she coughs. She reports wheezing. She denies any hematemesis, abdominal pain, nausea, vomiting, chest pain. She reports pleuritic pain after she has a coughing spell. There are no alleviating factors , shortness of breath is exacerbated with excessive movement PFSH Past Medical History Anemia: Yes Asthma: Yes Anxiety: Yes Cardiac Catheterization: Yes COPD: Yes Gastrointestinal Disorders: Yes Immune Disorder: Yes (HIV) Integumentary: Yes (ECZEMA) Immunizations Current: Yes Migraines: Yes Pneumonia: Yes Seizures: Yes Shingles: Yes Menopausal: Yes : 3 Para: 3 Past Surgical History Endocrine Surgery: Yes (LYMPH NODE REMOVED FROM LEFT SIDE OF NECK IN 1994) Social History Alcohol Use: No Tobacco Use: Yes (1.5 ppd) Substance Use: No Allergies-Medications (Allergen,Severity, Reaction): Coded Allergies: celecoxib (Unverified Allergy, Severe, Hallucinations, 02/18/17) diatrizoate meglumine (Unverified Allergy, Severe, SIEZURE, 02/18/17) gadobenic acid (Unverified Allergy, Severe, SIEZURE, 02/18/17) gadodiamide (Unverified Allergy, Severe, SIEZURE, 02/18/17) gadoteridol (Unverified Allergy, Severe, SIEZURE, 02/18/17) iodixanol (Unverified Allergy, Severe, SIEZURE, 02/18/17) iohexol (Unverified Allergy, Severe, SIEZURE, 02/18/17) Reported Meds & Prescriptions Reported Meds & Active Scripts Active Prednisone 50 Mg Tab 50 Mg PO DAILY 5 Days Azithromycin 250 Mg Tab 250 Mg PO DIRECTED Take 2 tabs (500 mg) on day 1 then 1 tab daily x 4 days. Azithromycin 250 Mg Tab 250 Mg PO DAILY 4 Days Ventolin Hfa 18 GM Inh (Albuterol Sulfate) 90 Mcg/Act Aer 2 Puff INH Q4H PRN Deltasone (Prednisone) 20 Mg Tab 20 Mg PO BID 5 Days Prednisone 50 Mg Tab 50 Mg PO DAILY 4 Days Zithromax Z-Clemente (Azithromycin) 250 Mg Dspk 250 Mg PO DIRECTED 500 MG (2 tabs) day 1, then 1 tab days 2-5. Albuterol Neb (Albuterol Sulfate) 2.5 Mg/3 Ml Neb 2.5 Mg NEB QID NEB Reported Dilantin (Phenytoin Extended) 100 Mg Cap 100 Mg PO DAILY Stribild (Wwjagpmdaspf-Vpchcsiqji-Ygspasbbydkb-Tenofvir) [phone] Mg Tab 1 Tab PO DAILY With food Albuterol Neb (Albuterol Sulfate) 2.5 Mg/0.5 Ml Neb 2.5 Mg NEB TID NEB PRN Note: The Albuterol Sulfate Inhalation Solution is concentrated and must be diluted. Read complete instructions carefully before using. Ventolin Hfa 18 GM Inh (Albuterol Sulfate) 90 Mcg/Act Aer 2 Puff INH Q4-6H PRN Review of Systems Except as stated in HPI: all other systems reviewed are Neg General / Constitutional: Positive: Chills Cardiovascular: Positive: Tachycardia, Dyspnea on exertion Respiratory: Positive: Cough, Shortness of Breath, Wheezing, Pleuritic Pain Gastrointestinal: No: Nausea, Vomiting, Abdominal Pain Musculoskeletal: No: Myalgias Neurologic: Positive: Dizziness, No: Weakness, Syncope, Focal Abnormalities Physical Exam Narrative GENERAL: Thin, well-developed, alert female. She comfortably in no acute distress. SKIN: Warm and dry. HEAD: Atraumatic. Normocephalic. EYES: Pupils equal and round. No scleral icterus. No injection or drainage. ENT: No nasal bleeding or discharge. Mucous membranes pink and moist. NECK: Trachea midline. No JVD. CARDIOVASCULAR: Tachycardic RESPIRATORY: No accessory muscle use. Expiratory wheezes throughout, diminished in bases. GASTROINTESTINAL: Abdomen soft, non-tender, nondistended. Hepatic and splenic margins not palpable. MUSCULOSKELETAL: Extremities without clubbing, cyanosis, or edema. No obvious deformities. NEUROLOGICAL: Awake and alert. No obvious cranial nerve deficits. Motor grossly within normal limits. Five out of 5 muscle strength in the arms and legs. Normal speech. PSYCHIATRIC: Appropriate mood and affect; insight and judgment normal. Data Data Last Documented VS Vital Signs Date Time Temp Pulse Resp B/P (MAP) Pulse Ox O2 Delivery O2 Flow Rate FiO2 05/05/17 18:21 98.2 84 17 128/58 (81) 94 Room Air Orders Orders Complete Blood Count With Diff (05/05/17 13:24) Basic Metabolic Panel (Bmp) (05/05/17 13:24) Act Partial Throm Time (Ptt) (05/05/17 13:24) Prothrombin Time / Inr (Pt) (05/05/17 13:24) Magnesium (Mg) (05/05/17 13:24) Ckmb (Isoenzyme) Profile (05/05/17 13:24) Troponin I (05/05/17 13:24) Influenzae A/B Antigen (05/05/17 13:24) Electrocardiogram (05/05/17 13:24) Chest, Pa & Lat (05/05/17 13:24) Ecg Monitoring (05/05/17 14:47) Iv Access Insert/Monitor (05/05/17 14:47) Oximetry (05/05/17 14:47) Oxygen Administration (05/05/17 14:47) Methylprednisolone So Succ Inj (Solumedr (05/05/17 15:00) Albuterol-Ipratropium Neb (Duoneb Neb) (05/05/17 15:00) Sodium Chloride 0.9% Flush (Ns Flush) (05/05/17 15:00) Budesonide Neb (Pulmicort Respule Neb) (05/05/17 15:00) CKMB (05/05/17 14:25) CKMB% (05/05/17 14:25) Levofloxacin 500 Mg Premix Inj (Levaquin (05/05/17 15:45) Sodium Chlor 0.9% 1000 Ml Inj (Ns 1000 M (05/05/17 16:00) Ed Discharge Order (05/05/17 16:44) Labs Laboratory Tests Test 05/05/17 14:25 White Blood Count 9.1 TH/MM3 Red Blood Count 4.17 MIL/MM3 Hemoglobin 12.8 GM/DL Hematocrit 38.3 % Mean Corpuscular Volume 91.9 FL Mean Corpuscular Hemoglobin 30.8 PG Mean Corpuscular Hemoglobin Concent 33.6 % Red Cell Distribution Width 15.4 % Platelet Count 215 TH/MM3 Mean Platelet Volume 9.7 FL Neutrophils (%) (Auto) 75.6 % Lymphocytes (%) (Auto) 18.0 % Monocytes (%) (Auto) 5.6 % Eosinophils (%) (Auto) 0.2 % Basophils (%) (Auto) 0.6 % Neutrophils # (Auto) 6.8 TH/MM3 Lymphocytes # (Auto) 1.6 TH/MM3 Monocytes # (Auto) 0.5 TH/MM3 Eosinophils # (Auto) 0.0 TH/MM3 Basophils # (Auto) 0.1 TH/MM3 CBC Comment DIFF FINAL Differential Comment Prothrombin Time 12.4 SEC Prothromb Time International Ratio 1.2 RATIO Activated Partial Thromboplast Time 30.3 SEC Blood Urea Nitrogen 12 MG/DL Creatinine 1.09 MG/DL Random Glucose 128 MG/DL Calcium Level 8.1 MG/DL Magnesium Level 2.5 MG/DL Sodium Level 135 MEQ/L Potassium Level 4.1 MEQ/L Chloride Level 101 MEQ/L Carbon Dioxide Level 24.4 MEQ/L Anion Gap 10 MEQ/L Estimat Glomerular Filtration Rate 65 ML/MIN Total Creatine Kinase 140 U/L Creatine Kinase MB LESS THAN 0.5 NG/ML Troponin I LESS THAN 0.02 NG/ML MDM Medical Decision Making Medical Screen Exam Complete: Yes Emergency Medical Condition: Yes Medical Record Reviewed: Yes Interpretation(s) Last Impressions Chest X-Ray 05/05/17 1324 Signed Impressions: Service Date/Time: April 13:34 - CONCLUSION: Emphysema. No acute disease. Nathanael Mckeon MD Laboratory Tests Test 05/05/17 14:25 White Blood Count 9.1 TH/MM3 Red Blood Count 4.17 MIL/MM3 Hemoglobin 12.8 GM/DL Hematocrit 38.3 % Mean Corpuscular Volume 91.9 FL Mean Corpuscular Hemoglobin 30.8 PG Mean Corpuscular Hemoglobin Concent 33.6 % Red Cell Distribution Width 15.4 % Platelet Count 215 TH/MM3 Mean Platelet Volume 9.7 FL Neutrophils (%) (Auto) 75.6 % Lymphocytes (%) (Auto) 18.0 % Monocytes (%) (Auto) 5.6 % Eosinophils (%) (Auto) 0.2 % Basophils (%) (Auto) 0.6 % Neutrophils # (Auto) 6.8 TH/MM3 Lymphocytes # (Auto) 1.6 TH/MM3 Monocytes # (Auto) 0.5 TH/MM3 Eosinophils # (Auto) 0.0 TH/MM3 Basophils # (Auto) 0.1 TH/MM3 CBC Comment DIFF FINAL Differential Comment Prothrombin Time 12.4 SEC Prothromb Time International Ratio 1.2 RATIO Activated Partial Thromboplast Time 30.3 SEC Blood Urea Nitrogen 12 MG/DL Creatinine 1.09 MG/DL Random Glucose 128 MG/DL Calcium Level 8.1 MG/DL Magnesium Level 2.5 MG/DL Sodium Level 135 MEQ/L Potassium Level 4.1 MEQ/L Chloride Level 101 MEQ/L Carbon Dioxide Level 24.4 MEQ/L Anion Gap 10 MEQ/L Estimat Glomerular Filtration Rate 65 ML/MIN Total Creatine Kinase 140 U/L Creatine Kinase MB LESS THAN 0.5 NG/ML Troponin I LESS THAN 0.02 NG/ML Vital Signs Date Time Temp Pulse Resp B/P (MAP) Pulse Ox O2 Delivery O2 Flow Rate FiO2 05/05/17 13:14 133 16 103/53 (70 90 Differential Diagnosis COPD exacerbation versus pneumonia versus bronchitis versus influenza versus metabolic abnormality versus other Narrative Course Patient is a 47-year-old female presenting to emergency evaluation of shortness of breath. Patient is tachycardic and hypoxic on arrival. Temperature was not recorded in triage, temp was assessed in room at 98.9. Patient was protocol in triage. Chest x-ray shows emphysema, no acute disease. CBC is unremarkable Chemistry with no acute findings. Cardiac enzymes are negative. Influenza is pending. Patient was given Solu-Medrol, DuoNeb 3 and budesonide. She is resting comfortably, her oxygen saturation is 95% on room air. Patient was reassessed, she is resting comfortably. She was given 1 L of IV fluids. Patient be discharged home on antibiotics and oral steroids. Patient is a follow-up with her primary doctor. Patient given strict return precautions. Patient was encouraged return from her department for any new or worsening symptoms. Vital signs reassessed and have normalized. Patient is stable for discharge. Diagnosis Primary Impression: COPD exacerbation Referrals: [facility] 2 days call for appointment Patient Instructions: COPD (Chronic Obstructive Pulmonary Disease) (ED), General Instructions, Nutrition Guidelines for People with COPD (ED) Additional Instructions: Follow-up with Dr. Kim in 2-3 days Take medications as directed Use inhalers as prescribed Return to emergency department immediately for any new or worsening symptoms Med/Other Pt SpecificInfo: Prescription(s) given Scripts Prednisone (Prednisone) 50 Mg Tab 50 MG PO DAILY for 5 Days, #5 TAB 0 Refills Prov: Dimple Gonsales 05/05/17 Azithromycin (Azithromycin) 250 Mg Tab 250 MG PO DIRECTED for Infection, #6 TAB 0 Refills Take 2 tabs (500 mg) on day 1 then 1 tab daily x 4 days. Prov: Dimple Gonsales 05/05/17 Disposition: 01 DISCHARGE HOME Condition: Stable Dimple Gonsales May 05, 2017 15:01
[2017-05-05 15:03] VITALS: O2SAT 87
[2017-05-05 15:04] LABS: AUTOMATED NEUTROPHIL # 6.8 TH/MM3 (1.8-7.7); BASOPHIL # 0.1 TH/MM3 (0-0.2); BASOPHIL % 0.6 % (0.0-2.0); EOSINOPHIL % 0.2 % (0.0-4.0); HEMATOCRIT 38.3 % (35.0-46.0); HEMOGLOBIN 12.8 GM/DL (11.6-15.3); LYMPHOCYTE # 1.6 TH/MM3 (1.0-4.8); MEAN CELL VOLUME 91.9 FL (80.0-100.0); MEAN CORPUSCULAR HEMOGLOBIN 30.8 PG (27.0-34.0); MEAN CORPUSCULAR HGB CONC 33.6 % (32.0-36.0); MEAN PLATELET VOLUME 9.7 FL (7.0-11.0); MONO % 5.6 % (0.0-8.0); MONOCYTE # 0.5 TH/MM3 (0-0.9); NEUT % 75.6 % (16.0-70.0); PLATELET COUNT 215 TH/MM3 (150-450); RED BLOOD COUNT 4.17 MIL/MM3 (4.00-5.30); RED CELL DISTRIBUTION WIDTH 15.4 % (11.6-17.2); WHITE BLOOD COUNT 9.1 TH/MM3 (4.0-11.0)
[2017-05-05 15:15] LABS: INTERNATIONAL NORMALIZED RATIO 1.2 RATIO; PROTHROMBIN TIME - PATIENT 12.4 SEC (9.8-11.6)
[2017-05-05 15:23] LABS: BICARBONATE 24.4 MEQ/L (21.0-32.0); BLOOD UREA NITROGEN 12 MG/DL (7-18); CALCIUM 8.1 MG/DL (8.5-10.1); CHLORIDE 101 MEQ/L (98-107); CREATININE 1.09 MG/DL (0.50-1.00); GLOMERULAR FILTRATION RATE 65 ML/MIN (>89); GLUCOSE,RANDOM 128 MG/DL (74-106); MAGNESIUM 2.5 MG/DL (1.5-2.5); SODIUM (NA) 135 MEQ/L (136-145)
[2017-05-05 15:26] LABS: TROPONIN I LESS THAN 0.02 NG/ML (0.02-0.05)
[2017-05-05] MEDS ORDERED: LEVOFLOXACIN 500 MG PREMIX INJ 100 ML IV ONE (15:45)
[2017-05-05] MEDS ORDERED: SODIUM CHLOR 0.9% 1000 ML INJ 1,000 ML IV ONE (16:00)
--- NOTE | 2017-05-05 16:35 | PD ---
Data Data Last Documented VS Vital Signs Date Time Temp Pulse Resp B/P (MAP) Pulse Ox O2 Delivery O2 Flow Rate FiO2 05/05/17 18:21 98.2 84 17 128/58 (81) 94 Room Air Orders Orders Complete Blood Count With Diff (05/05/17 13:24) Basic Metabolic Panel (Bmp) (05/05/17 13:24) Act Partial Throm Time (Ptt) (05/05/17 13:24) Prothrombin Time / Inr (Pt) (05/05/17 13:24) Magnesium (Mg) (05/05/17 13:24) Ckmb (Isoenzyme) Profile (05/05/17 13:24) Troponin I (05/05/17 13:24) Influenzae A/B Antigen (05/05/17 13:24) Electrocardiogram (05/05/17 13:24) Chest, Pa & Lat (05/05/17 13:24) Ecg Monitoring (05/05/17 14:47) Iv Access Insert/Monitor (05/05/17 14:47) Oximetry (05/05/17 14:47) Oxygen Administration (05/05/17 14:47) Methylprednisolone So Succ Inj (Solumedr (05/05/17 15:00) Albuterol-Ipratropium Neb (Duoneb Neb) (05/05/17 15:00) Sodium Chloride 0.9% Flush (Ns Flush) (05/05/17 15:00) Budesonide Neb (Pulmicort Respule Neb) (05/05/17 15:00) CKMB (05/05/17 14:25) CKMB% (05/05/17 14:25) Levofloxacin 500 Mg Premix Inj (Levaquin (05/05/17 15:45) Sodium Chlor 0.9% 1000 Ml Inj (Ns 1000 M (05/05/17 16:00) Ed Discharge Order (05/05/17 16:44) Labs Laboratory Tests Test 05/05/17 14:25 White Blood Count 9.1 TH/MM3 Red Blood Count 4.17 MIL/MM3 Hemoglobin 12.8 GM/DL Hematocrit 38.3 % Mean Corpuscular Volume 91.9 FL Mean Corpuscular Hemoglobin 30.8 PG Mean Corpuscular Hemoglobin Concent 33.6 % Red Cell Distribution Width 15.4 % Platelet Count 215 TH/MM3 Mean Platelet Volume 9.7 FL Neutrophils (%) (Auto) 75.6 % Lymphocytes (%) (Auto) 18.0 % Monocytes (%) (Auto) 5.6 % Eosinophils (%) (Auto) 0.2 % Basophils (%) (Auto) 0.6 % Neutrophils # (Auto) 6.8 TH/MM3 Lymphocytes # (Auto) 1.6 TH/MM3 Monocytes # (Auto) 0.5 TH/MM3 Eosinophils # (Auto) 0.0 TH/MM3 Basophils # (Auto) 0.1 TH/MM3 CBC Comment DIFF FINAL Differential Comment Prothrombin Time 12.4 SEC Prothromb Time International Ratio 1.2 RATIO Activated Partial Thromboplast Time 30.3 SEC Blood Urea Nitrogen 12 MG/DL Creatinine 1.09 MG/DL Random Glucose 128 MG/DL Calcium Level 8.1 MG/DL Magnesium Level 2.5 MG/DL Sodium Level 135 MEQ/L Potassium Level 4.1 MEQ/L Chloride Level 101 MEQ/L Carbon Dioxide Level 24.4 MEQ/L Anion Gap 10 MEQ/L Estimat Glomerular Filtration Rate 65 ML/MIN Total Creatine Kinase 140 U/L Creatine Kinase MB LESS THAN 0.5 NG/ML Troponin I LESS THAN 0.02 NG/ML MDM Medical Record Reviewed: Yes Supervised Visit with ALEJANDRA: Yes Narrative Course I, Dr. Rodriguez, have reviewed the advance practice practitioner's documentation and am in agreement, met with the patient face to face, made the diagnosis, and the medical decision making was done by me. *My assessment and Findings: CBC & BMP Diagram 05/05/17 14:25 Calcium Level 8.1 L, Magnesium Level 2.5 Last Impressions Chest X-Ray 05/05/17 1324 Signed Impressions: Service Date/Time: April 13:34 - CONCLUSION: Emphysema. No acute disease. Nathanael Mckeon MD Overall the patient has responded well to interventions here with her workup being essentially unremarkable. discharge home with primary care follow-up is considered reasonable. Presentation considered to be mostly keeping with a COPD exacerbation. Scripts Prednisone (Prednisone) 50 Mg Tab 50 MG PO DAILY for 5 Days, #5 TAB 0 Refills Prov: Dimple Gonsales 05/05/17 Azithromycin (Azithromycin) 250 Mg Tab 250 MG PO DIRECTED for Infection, #6 TAB 0 Refills Take 2 tabs (500 mg) on day 1 then 1 tab daily x 4 days. Prov: Dimple Gonsales 05/05/17 Earl Rodriguez MD May 05, 2017 16:35
[2017-05-05] MEDS ORDERED: AZIT250T3 PO (16:55)
[2017-05-05] MEDS ORDERED: PRED50 PO (16:55)
[2017-05-05 18:21] VITALS: BP 128/58; PULSE 84; RESP 17; TEMP 98.2; O2SAT 94
--- NOTE | 2017-05-05 19:49 | EKG ---
Date Performed: 05/05/2017 Time Performed: 14:17:48 PTAGE: 47 years EKG: Marked baseline artifact SINUS TACHYCARDIA WITH SHORT ME INTERVAL POSSIBLE LEFT ATRIAL ENLA RGEMENT ABNORMAL RHYTHM ECG Compared to prior electrocardiogram, Nonspecific T wave changes are less marked PREVIOUS TRACING : 02/23/2017 18.36 DOCTOR: Nigel Mora Interpretating Date/Time 05/05/2017 19:48:30
== END 2017-05-05 18:33 | disposition home or self-care (01) ==
LOC: NEPC 13:11
DX: J44.1 Chronic obstructive pulmonary disease with (acute) exacerbation (principal); R94.31 Abnormal electrocardiogram [ECG] [EKG]; F41.9 Anxiety disorder, unspecified; D64.9 Anemia, unspecified; F17.210 Nicotine dependence, cigarettes, uncomplicated
CPT/HCPCS: 71046; 80048; 82550; 82552; 83735; 84484; 85025; 85610; 85730; 87804; 93005; 94640; 94664; 96361; 96374; 99285; J2930; J7030; J7626

== ENCOUNTER 2017-05-12 14:32 | Observation (INO) | payer MEDICARE, OTHER ==
[2017-05-12] MEDS ORDERED: SODIUM CHLORIDE 0.9% FLUSH 10 ML FLUSH IVF (16:45)
[2017-05-12] MEDS: RESP: ALBUTEROL 2.5 MG/IPRATROPIUM 0.5 MG NEB (SCH) INH ×3 (16:45→16:58)
[2017-05-12] MEDS: methylPREDNISolone SOD SUCC 125 MG/2 ML VIAL IV PUSH (17:55)
[2017-05-12] MEDS: SODIUM CHLOR 0.9% 1000 ML INJ 1,000 ML IV (17:55)
[2017-05-12 18:10] LABS: AUTOMATED NEUTROPHIL # 8.4 TH/MM3 (1.8-7.7); BASOPHIL % 0.3 % (0.0-2.0); EOSINOPHIL % 0.3 % (0.0-4.0); HEMATOCRIT 41.8 % (35.0-46.0); HEMO FLAGS DIFF FINAL; HEMOGLOBIN 13.9 GM/DL (11.6-15.3); LYMPH % 28.3 % (9.0-44.0); LYMPHOCYTE # 3.7 TH/MM3 (1.0-4.8); MEAN CELL VOLUME 93.5 FL (80.0-100.0); MEAN CORPUSCULAR HEMOGLOBIN 31.1 PG (27.0-34.0); MEAN CORPUSCULAR HGB CONC 33.3 % (32.0-36.0); MEAN PLATELET VOLUME 8.4 FL (7.0-11.0); MONO % 7.3 % (0.0-8.0); NEUT % 63.8 % (16.0-70.0); PLATELET COUNT 409 TH/MM3 (150-450); RED BLOOD COUNT 4.47 MIL/MM3 (4.00-5.30); RED CELL DISTRIBUTION WIDTH 16.1 % (11.6-17.2); WHITE BLOOD COUNT 13.2 TH/MM3 (4.0-11.0)
[2017-05-12 18:18] LABS: ANION GAP 4 MEQ/L (5-15); BICARBONATE 30.9 MEQ/L (21.0-32.0); BLOOD UREA NITROGEN 19 MG/DL (7-18); CALCIUM 8.1 MG/DL (8.5-10.1); CHLORIDE 106 MEQ/L (98-107); CREATININE 0.92 MG/DL (0.50-1.00); GLOMERULAR FILTRATION RATE 79 ML/MIN (>89); GLUCOSE,RANDOM 91 MG/DL (74-106); MAGNESIUM 2.3 MG/DL (1.5-2.5); POTASSIUM 4.1 MEQ/L (3.5-5.1); SODIUM (NA) 141 MEQ/L (136-145)
[2017-05-12 18:21] LABS: TROPONIN I LESS THAN 0.02 NG/ML (0.02-0.05)
[2017-05-12 18:43] LABS: INTERNATIONAL NORMALIZED RATIO 1.1 RATIO; PROTHROMBIN TIME - PATIENT 10.7 SEC (9.8-11.6)
[2017-05-12] MEDS ORDERED: RESP: ALBUTEROL 2.5 MG/IPRATROPIUM 0.5 MG NEB (PRN) NEB (19:30)
[2017-05-12] MEDS ORDERED: SODIUM CHLORIDE 0.9% FLUSH 10 ML FLUSH IV FLUSH ×2 (19:45→21:00)
[2017-05-12] MEDS ORDERED: ENOXAPARIN SODIUM 40 MG/0.4 ML SYRINGE SQ ×2 (19:45→20:15)
[2017-05-12] MEDS ORDERED: LORazepam 2 MG/ML VIAL IV PUSH (19:45)
[2017-05-12] MEDS ORDERED: RESP: ALBUTEROL 2.5 MG/IPRATROPIUM 0.5 MG NEB (SCH) INH (22:00)
[2017-05-13] MEDS ORDERED: methylPREDNISolone SOD SUCC 125 MG/2 ML VIAL IV PUSH
[2017-05-13] MEDS ORDERED: PHENYTOIN SODIUM 100 MG CAP PO (09:00)
[2017-05-13] MEDS ORDERED: ELVIT/COBI/EMTR/TENOF 150/150/200/300 MG TABLETS PO (09:00)
== END 2017-05-12 20:00 | disposition left against medical advice (07) ==
LOC: NEPD 14:32 → NEDA 19:06
DX: J44.1 Chronic obstructive pulmonary disease with (acute) exacerbation (principal); R09.02 Hypoxemia; E86.0 Dehydration; D72.829 Elevated white blood cell count, unspecified; Z21 Asymptomatic human immunodeficiency virus [HIV] infection status; R94.31 Abnormal electrocardiogram [ECG] [EKG]
CPT/HCPCS: 71045; 80048; 83735; 84484; 85025; 85610; 85730; 87081; 87804; 87804-59; 87880; 93005; 94618; 94664; 96361; 96374; 99285-25

== ENCOUNTER 2018-04-21 21:06 | Inpatient (IN) ==
[2018-04-21] MEDS ORDERED: Acetaminophen 500 MG Tablet PO ONE (21:11)
[2018-04-21] MEDS ORDERED: Azithromycin 250 MG Tablet PO ONE (21:11)
[2018-04-21] MEDS ORDERED: LORazepam 1 MG Tablet PO ONE (21:27)
--- NOTE | 2018-04-21 21:31 | XR ---
EXAM DATE: 04/21/2018 9:27 PM EST AGE/SEX: 48 years / Female INDICATIONS: Shortness of breath. CLINICAL DATA: This is the patient's initial encounter. Patient reports that signs and symptoms have been present for 2 days and indicates a pain score of 0/10. MEDICAL/SURGICAL HISTORY: Chronic obstructive pulmonary disease. None. COMPARISON: [facility], CHEST SINGLE AP, 05/12/2017. . FINDINGS: The lungs are clear without infiltrate, nodule, or mass. There is no appreciable pleural effusion for technique. Heart and mediastinum are unremarkable. CONCLUSION: No acute cardiopulmonary disease. Electronically signed by: Javad Leslie MD Board Certified Radiologist 04/21/2018 9:30 PM EST
--- NOTE | 2018-04-21 21:42 | ED ---
HPI General Chief complaint: Shortness of Breath/Dyspnea Stated complaint: SOB Time Seen by Provider: 04/21/18 21:11 Source: patient Mode of arrival: ambulatory Limitations: no limitations History of Present Illness HPI narrative: Is a 48-year-old woman who presents to the emergency department complaining of worsening trouble breathing. She is a history of HIV and COPD. She follows with Dr. Paul Kim. States that she has had some URI symptoms for the past several weeks, mild to moderate, with some trouble breathing, and then over the past day or so she has had more severe trouble breathing, more severe chest tightness. She states that the chest tightness when she had trouble breathing in the past but is usually resolved pretty quickly. She took home bronchodilators without significant improvement in her symptoms. She otherwise had been feeling well and healthy prior to the onset of the symptoms. No other associated complaints. Related Data Home Medications Medication Instructions Recorded Confirmed sxaaatv-lzv-jeand-tenofo disop 1 tab PO DAILY 04/21/18 04/21/18 [Stribild] Allergies Allergy/AdvReac Type Severity Reaction Status Date / Time celecoxib Allergy Severe Hallucinati Verified 04/21/18 23:34 ons diatrizoate meglumine Allergy Severe SIEZURE Verified 04/21/18 23:34 gadobenic acid Allergy Severe SIEZURE Verified 04/21/18 23:34 gadodiamide Allergy Severe SIEZURE Verified 04/21/18 23:34 gadoteridol Allergy Severe SIEZURE Verified 04/21/18 23:34 iodixanol Allergy Severe SIEZURE Verified 04/21/18 23:34 iohexol Allergy Severe SIEZURE Verified 04/21/18 23:34 Review of Systems ROS: all other systems reviewed are negative [facility] Medical History Medical History HIV disease (Acute) History of COPD (Acute) Surgical History Surgical History Hx of neck surgery (Acute) Social History Social History Substance History: No History of Abuse Smoking Status: Current every day smoker Tobacco Type: Cigarettes How Often Do You Have a Drink Containing Alcohol: Never Recent Out of Country Travel within the Last 8 Weeks: No Exam Narrative Exam Narrative: GENERAL: Thin 48-year-old woman, moderate respiratory distress. SKIN: Focused skin assessment warm/dry. HEAD: Atraumatic. Normocephalic. EYES: Pupils equal and round. No scleral icterus. No injection or drainage. ENT: No nasal bleeding or discharge. Mucous membranes pink and moist. NECK: Trachea midline. No JVD. CARDIOVASCULAR: Regular rate and rhythm. No murmur appreciated. RESPIRATORY: Moderate respiratory distress. Prolonged expiratory phase with minimally audible wheezing throughout. Tight. GASTROINTESTINAL: Abdomen soft, non-tender, nondistended. Hepatic and splenic margins not palpable. MUSCULOSKELETAL: No obvious deformities. Decreased muscle bulk. NEUROLOGICAL: Awake and alert. No obvious cranial nerve deficits. Motor grossly within normal limits. Normal speech. Course Initial Documented Vital Signs Temperature 99.0 F 04/21/18 21:10 Pulse Rate 130 H 04/21/18 21:10 Respiratory Rate 32 H 04/21/18 21:10 Blood Pressure 198/101 H 04/21/18 21:10 Pulse Oximetry 92 L 04/21/18 21:10 Last Documented Vital Signs Temperature 98.5 F 04/21/18 22:46 Pulse Rate 117 H 04/22/18 01:18 Respiratory Rate 35 H 04/22/18 01:18 Blood Pressure 109/65 04/22/18 01:18 Pulse Oximetry 98 04/22/18 01:18 Medical Decision Making [facility] Narrative Medical decision making narrative: Is a 48-year-old with history of COPD and HIV presents to the emergency department with shortness of breath and chest tightness. Received steroids with EMS. Moderate improvement at this point. Will do x-ray, flu, labs, EKG. Continue bronchodilators. Antibiotics. Reassess. Medical Screen Exam Complete: Yes Emergency Medical Condition: Yes Medical Records Medical records reviewed: Yes I reviewed the patient's medical records. Lab Data Result diagrams: 04/21/18 21:30 04/21/18 21:30 Lab Results 04/21/18 04/21/18 04/21/18 Range/Units 21:30 21:30 21:30 CBC w Diff Auto diff final WBC 7.6 (4.0-11.0) th/mm3 RBC 4.55 (4.00-5.30) mil/mm3 Hgb 13.9 (11.6-15.3) gm/dL Hct 43.3 (35.0-46.0) % MCV 95.3 (80.0-100.0) fL MCH 30.6 (27.0-34.0) pg MCHC 32.1 (32.0-36.0) % RDW 15.3 (11.6-17.2) % Plt Count 237 (150-450) th/mm3 MPV 9.7 (7.0-11.0) fL Neut % (Auto) 69.8 (16.0-70.0) % Lymph % (Auto) 20.9 (9.0-44.0) % Woods % (Auto) 7.7 (0.0-8.0) % Eos % (Auto) 0.0 (0.0-4.0) % Baso % (Auto) 1.6 (0.0-2.0) % Neut # (Auto) 5.2 (1.8-7.7) th/mm3 Lymph # (Auto) 1.6 (1.0-4.8) th/mm3 Woods # (Auto) 0.6 (0.0-0.9) th/mm3 Eos # (Auto) 0.0 (0.0-0.4) th/mm3 Baso # (Auto) 0.1 (0.0-0.2) th/mm3 WBC Differential . Differential Comment . D-Dimer Quant (PE/DVT) 0.44 (0.00-0.50) mg/L FEU Puncture Site Patient Temperature O2 Saturation (90-100) % ABG pH (7.380-7.420) ABG pCO2 (38-42) mmHg ABG pO2 (61-120) mmHg ABG HCO3 (22-26) mmol/L ABG O2 Content (12.0-20.0) Vol % ABG Base Excess (-2-2) mmol/L ABG Methemoglobin (0-2) % Lane Test Hemoglobin (12.0-16.0) G/DL Carboxyhemoglobin (0-4) % O2 Delivery Device Liter Flow L/M Critical Value Sodium 138 (136-145) meq/L Potassium 4.4 (3.5-5.1) meq/L Chloride 106 (98-107) meq/L Carbon Dioxide 25.3 (21.0-32.0) meq/L Anion Gap 7 (5-15) meq/L BUN 13 (7-18) mg/dL Creatinine 0.85 (0.50-1.00) mg/dL Estimated GFR 86 L (>89) mL/min Random Glucose 159 H (74-106) mg/dL Calcium 8.1 L (8.5-10.1) mg/dL Total Bilirubin 0.4 (0.2-1.0) mg/dL AST 41 H (15-37) U/L ALT 50 (10-53) U/L Alkaline Phosphatase 77 (45-117) U/L Troponin I 0.05 (0.02-0.05) ng/mL Total Protein 7.7 (6.4-8.2) g/dL Albumin 3.4 (3.4-5.0) g/dL 04/21/18 Range/Units 23:00 CBC w Diff WBC (4.0-11.0) th/mm3 RBC (4.00-5.30) mil/mm3 Hgb (11.6-15.3) gm/dL Hct (35.0-46.0) % MCV (80.0-100.0) fL MCH (27.0-34.0) pg MCHC (32.0-36.0) % RDW (11.6-17.2) % Plt Count (150-450) th/mm3 MPV (7.0-11.0) fL Neut % (Auto) (16.0-70.0) % Lymph % (Auto) (9.0-44.0) % Woods % (Auto) (0.0-8.0) % Eos % (Auto) (0.0-4.0) % Baso % (Auto) (0.0-2.0) % Neut # (Auto) (1.8-7.7) th/mm3 Lymph # (Auto) (1.0-4.8) th/mm3 Woods # (Auto) (0.0-0.9) th/mm3 Eos # (Auto) (0.0-0.4) th/mm3 Baso # (Auto) (0.0-0.2) th/mm3 WBC Differential Differential Comment D-Dimer Quant (PE/DVT) (0.00-0.50) mg/L FEU Puncture Site Right radial Patient Temperature 98.6 O2 Saturation 90 (90-100) % ABG pH 7.31 L (7.380-7.420) ABG pCO2 51 H* (38-42) mmHg ABG pO2 78 (61-120) mmHg ABG HCO3 25 (22-26) mmol/L ABG O2 Content 16.6 (12.0-20.0) Vol % ABG Base Excess -0.8 (-2-2) mmol/L ABG Methemoglobin 1.8 (0-2) % Lane Test Present Hemoglobin 13.0 (12.0-16.0) G/DL Carboxyhemoglobin 2.1 (0-4) % O2 Delivery Device Nasal cannula Liter Flow 2.00 L/M Critical Value Yes Sodium (136-145) meq/L Potassium (3.5-5.1) meq/L Chloride (98-107) meq/L Carbon Dioxide (21.0-32.0) meq/L Anion Gap (5-15) meq/L BUN (7-18) mg/dL Creatinine (0.50-1.00) mg/dL Estimated GFR (>89) mL/min Random Glucose (74-106) mg/dL Calcium (8.5-10.1) mg/dL Total Bilirubin (0.2-1.0) mg/dL AST (15-37) U/L ALT (10-53) U/L Alkaline Phosphatase (45-117) U/L Troponin I (0.02-0.05) ng/mL Total Protein (6.4-8.2) g/dL Albumin (3.4-5.0) g/dL Imaging Data Attestation: I personally reviewed and interpreted this imaging study as follows : Radiologist's impression: Chest X-Ray 04/21/18 21:11 CONCLUSION: No acute cardiopulmonary disease. ECG Data Attestation: I personally reviewed and interpreted this ECG as follows: Interpretation: Sinus tachycardia rate of 136, normal axis, normal intervals, possible LVH by voltage, no definite evidence of acute ischemia. Discharge Plan Discharge Disposition Patient Disposition: ED Admit(ED Internal Use Only) Discharge Order Discharge Orders: ED Use Only Admit Order (Routine); Ordered 04/22/18 Ordered By: Paul Lew Physicians Team ED Provider: Paul Lew Primary Care Provider: UNKNOWN, Attending Provider: Oscar Saenz Status ED Status: Admitted Patient
[2018-04-21 21:43] LABS: Baso # (Auto) 0.1 th/mm3 (0.0-0.2); Baso % (Auto) 1.6 % (0.0-2.0); Hematocrit 43.3 % (35.0-46.0); Hemoglobin 13.9 gm/dL (11.6-15.3); Lymph # (Auto) 1.6 th/mm3 (1.0-4.8); Lymph % (Auto) 20.9 % (9.0-44.0); Mean Corpuscular HGB Conc 32.1 % (32.0-36.0); Mean Corpuscular Hemoglobin 30.6 pg (27.0-34.0); Mean Corpuscular Volume 95.3 fL (80.0-100.0); Mean Platelet Volume 9.7 fL (7.0-11.0); Mono # (Auto) 0.6 th/mm3 (0.0-0.9); Mono % (Auto) 7.7 % (0.0-8.0); Neut # (Auto) 5.2 th/mm3 (1.8-7.7); Neut % (Auto) 69.8 % (16.0-70.0); Platelet Count 237 th/mm3 (150-450); Red Blood Count 4.55 mil/mm3 (4.00-5.30); Red Cell Distribution Width 15.3 % (11.6-17.2); White Blood Count 7.6 th/mm3 (4.0-11.0)
[2018-04-21] MEDS ORDERED: Sod Chloride 0.9% Inj 1,000 ML IV.SIG SCH (21:45)
[2018-04-21 21:58] LABS: Chloride 106 meq/L (98-107); Potassium 4.4 meq/L (3.5-5.1); Sodium 138 meq/L (136-145)
[2018-04-21 22:01] LABS: Calcium 8.1 mg/dL (8.5-10.1)
[2018-04-21 22:02] LABS: Albumin 3.4 g/dL (3.4-5.0); Anion Gap 7 meq/L (5-15); Blood Urea Nitrogen 13 mg/dL (7-18); Carbon Dioxide 25.3 meq/L (21.0-32.0); Glucose,Random 159 mg/dL (74-106)
[2018-04-21 22:05] LABS: Alanine Aminotransferase 50 U/L (10-53); Aspartate Aminotransferase 41 U/L (15-37); Glomerular Filtration Rate 86 mL/min (>89)
[2018-04-21 22:07] LABS: Total Protein 7.7 g/dL (6.4-8.2)
[2018-04-21 22:08] LABS: Alkaline Phosphatase 77 U/L (45-117)
[2018-04-21 22:10] LABS: Troponin I 0.05 ng/mL (0.02-0.05)
[2018-04-21 23:14] LABS: ABG Base Excess -0.8 mmol/L (-2-2); ABG PCO2 51 mmHg (38-42); ABG PO2 78 mmHg (61-120)
[2018-04-21] MEDS: Mag Sulf 1 gm/100 ml Premix 100 ML IV.SIG SCH (23:35)
[2018-04-22] MEDS: Mag Sulf 1 gm/100 ml Premix 100 ML IV.SIG SCH (00:05)
[2018-04-22] MEDS ORDERED: Acetaminophen 325 MG Tablet PO PRN (00:07)
[2018-04-22] MEDS ORDERED: Enoxaparin Inj 40 MG/0.4 ML Syringe SQ SCH (00:15)
[2018-04-22] MEDS ORDERED: Sod Chloride 0.9% Inj 1,000 ML IV.CONT SCH (04:48)
[2018-04-22] MEDS ORDERED: Sodium Chlor 0.9% Inj 250 ML IV.SIG ONE (04:50)
[2018-04-22] MEDS ORDERED: MethylPREDNISolone Sod Succinate Inj 125 MG/2 ML Vial IV.PUSH ONE (05:03)
[2018-04-22] MEDS ORDERED: MethylPREDNISolone Sod Succinate Inj 40 MG/ML Vial IV.PUSH SCH (06:00)
[2018-04-22 08:06] VITALS: PULSE 108; RESP 22
--- NOTE | 2018-04-22 08:31 | P.HPIM ---
History of Present Illness Primary Care Physician: UNKNOWN Chief Complaint: Shortness of breath and dyspnea History of Present Illness: 48-year-old female with known history of chronic obstructive pulmonary disease, chronic tobacco use, HIV who presented to the hospital because of 2-week history of shortness of breath and dyspnea. Patient is followed by Dr. Kim in outpatient setting. However she never contacted him when her symptoms started. She states that her symptoms started with upper respiratory symptoms with cough, congestion and progressively got worse with yellow to green phlegm production. Patient was using her nebulizer/inhalers in outpatient setting without any significant improvement. Patient came to the emergency department for evaluation. Patient had workup done and found to have hypercapnia, tachypnea and patient was started on O2 supplementation, given Zithromax in the emergency department, nebulizer treatments with improvement. Patient states that initially her symptoms were a 12/10, now they are a 7/10. Patient is very eager to go home. She was going to sign out AGAINST MEDICAL ADVICE because she states that she feels much better. I discussed with her that she would benefit from a few more IV antibiotics prior to going home. Patient is in agreement at this time as long as we can discharge her today. Patient denies any headache, chest pain, abdominal pain, nausea, vomiting, diarrhea, constipation. Inpatient Certification Inpatient Certification: I certify that the inpatient services were ordered in accordance with Medicare regulations governing the order. This includes certification that hospital inpatient services are reasonable and necessary and in the case of services not specified as inpatient-only under 42 CFR 419.22(n), that they are appropriately provided as inpatient services in accordance to with the 2-midnight benchmark under 43 CFR 412.3(e) Estimated Total Length of Stay (Days): 3 Plans for Post Hospital Care: Home Review of Systems Review of Systems: all other systems reviewed are negative Respiratory: Reports cough and Reports excessive phlegm production PMFSH Medical History Medical History HIV disease (Acute) History of COPD (Acute) Tobacco abuse (Acute) Surgical History Surgical History Hx of neck surgery (Acute) Family History Family History Father Family history of lung cancer Social History Social History Substance History: No History of Abuse Second Hand Smoke Exposure: Yes Smoking Status: Current every day smoker Tobacco Type: Cigarettes Packs Per Day: 1 Cigarettes Per Day: 20.0 Years Smoked: 20 Pack-Years: 20.00 How Often Do You Have a Drink Containing Alcohol: Never Recent Out of Country Travel within the Last 8 Weeks: No Immunization History Tetanus Immunization: Unable to Assess Hx Influenza Vaccine This Season: No Medications and Allergies Allergies Allergy/AdvReac Type Severity Reaction Status Date / Time celecoxib Allergy Severe Hallucinati Verified 04/21/18 23:34 ons diatrizoate meglumine Allergy Severe SIEZURE Verified 04/21/18 23:34 gadobenic acid Allergy Severe SIEZURE Verified 04/21/18 23:34 gadodiamide Allergy Severe SIEZURE Verified 04/21/18 23:34 gadoteridol Allergy Severe SIEZURE Verified 04/21/18 23:34 iodixanol Allergy Severe SIEZURE Verified 04/21/18 23:34 iohexol Allergy Severe SIEZURE Verified 04/21/18 23:34 Home Medications Medication Instructions Recorded Confirmed Type zibvmcl-kus-evpuv-tenofo disop 1 tab PO DAILY 04/21/18 04/21/18 History [Stribild] Active Medications: Active Medications Acetaminophen (Tylenol) 650 mg PO Q4H PRN PRN Reason: Temp > 100.4 Al Hydroxide/Mg Hydroxide (Milk Of Karlo Liq) 30 ml PO Q12H PRN PRN Reason: Mild Constipation Albuterol (Duoneb Neb (Prn)) 1 ampul NEB Q4HR NEB PRN PRN Reason: WHEEZING Last Admin: 04/22/18 04:31 Dose: 1 ampul Albuterol (Duoneb Neb (Marjorie)) 1 ampul NEB Q6HR WHILE AWAKE NEB MARJORIE Albuterol (Duoneb Neb (Prn)) 1 ampul NEB Q2HR NEB PRN PRN Reason: SHORTNESS OF BREATH/WHEEZING Azithromycin (Zithromax) 500 mg PO DAILY [facility] Elvitegravir/Cobicis/Emtricit/Tenof (Stribild 150/150/200/300 Mg) 1 tab PO DAILY [facility] Enoxaparin Sodium (Lovenox Inj) 40 mg SQ Q24H MARJORIE Last Admin: 04/22/18 00:28 Dose: 40 mg Guaifenesin (Mucinex Er) 600 mg PO BID [facility] Sodium Chloride (Ns Inj) 1,000 mls @ 100 mls/hr IV.CONT .Q10H [facility] Last Admin: 04/22/18 05:31 Dose: 100 mls/hr Ceftriaxone Sodium 1,000 mg/ (Sodium Chloride) 100 mls @ 200 mls/hr IV.SIG Q24H MARJORIE Methylprednisolone Sodium Succinate (Solumedrol Inj) 40 mg IV.PUSH Q8HR [facility] Last Admin: 04/22/18 05:42 Dose: Not Given Ondansetron HCl (Zofran Inj) 4 mg IV.PUSH Q6H PRN PRN Reason: NAUSEA OR VOMITING Pantoprazole Sodium (Protonix) 40 mg PO DAILY [facility] Senna/Docusate Sodium (Marisela-Colace) 1 tab PO BID MARJORIE Sodium Chloride (Ns Flush) 2 ml IV.FLUSH BID MARJORIE Sodium Chloride (Ns Flush) 2 ml IV.FLUSH PRN PRN PRN Reason: FLUSH AFTER USING IV ACCESS Physical Exam Vital signs: Last Vital Signs Temp 99.9 F H 04/22/18 03:40 Pulse 108 H 04/22/18 08:05 Resp 22 04/22/18 08:05 BP 88/52 L 04/22/18 06:26 Pulse Ox 94 L 04/22/18 08:00 Intake & Output 04/20/18 04/21/18 04/22/18 04/23/18 06:59 06:59 06:59 06:59 Intake Total 1450 / 1450 Output Total 0 / 0 Balance 1450 / 1450 Weight 51.6 kg Narrative: GENERAL: Well-developed, undernourished, in no acute distress. alert and orientated HEENT: Head is normocephalic without any lesions or masses noted. Facial features are symmetric. Eyes: Pupils equal round reactive to light. Extraocular muscles are intact. Conjunctivae were clear. Oropharyngeal: Pharynx without any erythema edema. Tongue is midline without deviation. Buccal mucosa is moist without any masses or lesions NECK: Supple without any masses. Trachea midline no deviation. No JVD, no bruits are appreciated CARDIAC: Regular rhythm, regular rate. S1/S2 are heard. No murmurs gallops or rubs. LUNGS: Rhonchi heard bilaterally, no wheeze or rales. No use of accessory muscles on inspiration or expiration. ABDOMEN: Soft, nontender. Nondistended. Bowel sounds heard in all 4 quadrants. No organomegaly or masses. Negative rebound, negative guarding EXTREMITIES: No edema, pulses are equal bilaterally. No cyanosis or clubbing NEUROLOGY: Mood and affect appear appropriate. Cranial nerves II through XII grossly intact. Muscle strength 5/5 in upper and lower extremities bilaterally. Deep tendon reflexes are 2+ in upper and lower extremities bilaterally. Results Labs CBC & Chem 7: 04/21/18 21:30 04/21/18 21:30 Imaging Impressions Chest X-Ray 04/21/18 21:11 CONCLUSION: No acute cardiopulmonary disease. Caprini VTE Risk Assessment Caprini VTE Risk Assessment: Moderate/High Risk (score >= 2) Caprini Risk Assessment Model: Point Value = 1 Point Value = 2 Point Value = 3 Point Value = 5 Age 41-60 Minor surgery BMI > 25 kg/m2 Swollen legs Varicose veins or History of unexplained or recurrent spontaneous Oral contraceptives or hormone replacement Sepsis (< 1 month) Serious lung disease, including pneumonia (< 1 month) Abnormal pulmonary function Acute myocardial infarction Congestive heart failure (< 1 month) History of inflammatory bowel disease Medical patient at bed rest Age 61-74 Arthroscopic surgery Major open surgery (> 45 min) Laparoscopic surgery (> 45 min) Malignancy Confined to bed (> 72 hours) Immobilizing plaster cast Central venous access Age >= 75 History of VTE Family history of VTE Factor V Leiden Prothrombin 13529T Lupus anticoagulant Anticardiolipin antibodies Elevated serum homocysteine Heparin-induced thrombocytopenia Other congenital or acquired thrombophilia Stroke (< 1 month) Elective arthroplasty Hip, pelvis, or leg fracture Acute spinal cord injury (< 1 month) Prophylaxis Regimen: Total Risk Factor Score Risk Level Prophylaxis Regimen 0-1 Low Early ambulation 2 Moderate Order ONE of the following: *Sequential Compression Device (SCD) *Heparin 5000 units SQ BID 3-4 Higher Order ONE of the following medications: *Heparin 5000 units SQ TID *Enoxaparin/Lovenox 40 mg SQ daily (WT < 150 kg, CrCl > 30 mL/min) *Enoxaparin/Lovenox 30 mg SQ daily (WT < 150 kg, CrCl > 10-29 mL/min) *Enoxaparin/Lovenox 30 mg SQ BID (WT < 150 kg, CrCl > 30 mL/min) AND/OR *Sequential Compression Device (SCD) 5 or more Highest Order ONE of the following medications: *Heparin 5000 units SQ TID (Preferred with Epidurals) *Enoxaparin/Lovenox 40 mg SQ daily (WT < 150 kg, CrCl > 30 mL/min) *Enoxaparin/Lovenox 30 mg SQ daily (WT < 150 kg, CrCl > 10-29 mL/min) *Enoxaparin/Lovenox 30 mg SQ BID (WT < 150 kg, CrCl > 30 mL/min) AND *Sequential Compression Device (SCD) Assessment and Plan Plan Chronic obstructive pulmonary disease with mild hypercapnia Continue O2 supplementation maintain O2 sat greater than 92% Solu-Medrol 40 mg IV every 8 hours DuoNeb every 6 hours and every 2 hours as needed Rocephin/Zithromax for empiric antibiotic coverage Acapella Check procalcitonin level Start Mucinex Chronic smoking patient Counseled patient on cessation HIV Continue home antiviral medication DVT prevention Subcutaneous Lovenox Discharge Planning: Patient left the hospital AGAINST MEDICAL ADVICE, despite significant counseling by myself, nursing staff, charge nurse. She is not stable to go home with her respiratory status, respiratory distress. Patient was notified that if she wanted to come back to hospital please feel free to go back to the ER and she can be reevaluated at that time. H&P: Quality VTE Deep Vein Thrombosis/Pulmonary Embolism Present on Admission: No
[2018-04-22] MEDS ORDERED: Senna/Docusate Sodium 8.6/50 MG Tablet PO SCH (09:00)
[2018-04-22] MEDS ORDERED: guaiFENesin 600 MG ER Tablet PO SCH (09:00)
[2018-04-22] MEDS ORDERED: Elvitegravir/Cobi/Emtricit/Tenof 150/150/200/300 MG Tablet PO SCH (09:00)
[2018-04-22 09:38] VITALS: BP 117/68; TEMP 98.8; O2SAT 94
--- NOTE | 2018-04-22 15:24 | ECG ---
Date Performed: 04/21/2018 Time Performed: 21:36:19 PTAGE: 48 years EKG: SINUS TACHYCARDIA VOLTAGE CRITERIA FOR LVH ABNORMAL ECG Compared to PREVIOUS TRACING PAC's no longer present, otherwise no significant change. PREVIOUS TRAC IN05/12/2017 17.09 DOCTOR: Jorge Felix Interpretating Date/Time 04/22/2018 15:23:37
[2018-04-22] MEDS ORDERED: Azithromycin 250 MG Tablet PO SCH (21:00)
== END 2018-04-22 10:46 | disposition left against medical advice (07) | DRG 191 ==
LOC: PHED 21:06 → PHEDA 04-22 00:15 → PHICU 04-22 03:29 → PH3 04-22 08:57
PROVIDERS: ADMIT Internal Medicine; ATTEND Internal Medicine
CPT/HCPCS: 36600; 71010; 71045; 80053; 82805; 84145; 84484; 85025; 85379; 87275; 87276; 87804; 90761; 90765; 93005; 94002; 94640; 94656; 94664; 94665; 94667; 96361; 96365; 99285; J0696; J1650; J2930; J3475; J7030; J7050